=== PATIENT | female | born 1980 | race Caucasian/White ===

== ENCOUNTER 2022-08-18 08:59 | Emergency (ER) | payer OTHER, SELFPAY ==
[2022-08-18 09:07] VITALS: BP 147/93; PULSE 120; RESP 18; TEMP 38.1; O2SAT 98; BMI 25.4
--- NOTE | 2022-08-18 09:53 | XR_ITS ---
[address] [address] Patient Name: VANDANA FRANCIS MRN: [id number] date: 1980 Sex: F Assigned Patient Location: ED.MAIN Current Patient Location: ED.MAIN Accession/Order Number: [id number] Exam Date: 08/18/2022 09:53 Report Date: 08/18/2022 10:46 At the request of: GISSELLE MENDOZA Procedure: XR chest 1V XR chest 1V CLINICAL HISTORY: fever. COMPARISON: None Available. TECHNIQUE: Single AP portable upright view of the chest. FINDINGS: The lungs are clear. No pleural effusion or pneumothorax. Cardiomediastinal silhouette size is normal. No acute bony process. IMPRESSION: No acute cardiopulmonary process. Electronically authenticated by: CHARITO SHEA Date: 08/18/2022 10:46
--- NOTE | 2022-08-18 09:56 | ED_ITS ---
HPI - General Adult General Chief complaint: Fever Stated complaint: FEVER OF 103, NOT BREAKING Time Seen by Provider: 08/18/22 09:41 Source: patient Source information: patient Mode of arrival: walk-in Limitations: no limitations History of Present Illness HPI narrative: this patient presents to the emergency room with chills and fever. Symptoms started . She has [place] no upper respiratory or HEENT type symptomatology or complaints. She has no chest complaints such as cough shortness of breath sputum production or history of pulmonary disease. She did have onset of diarrhea on the same day of her fever. She says it's brown copious large amounts of diarrhea and she also has nausea but no vomiting. She does not have any other coworkers friends or family members were sick with diarrhea. She has not had any travel history. She has not had blood in her stool. She ate sushi from a rest from a grocery store on Saturday night became very ill with diarrhea on morning. She has not been on any antibiotic she is otherwise very healthy is not on any home medications. She works from home. Related Data Home Medications Medication Instructions Recorded Confirmed meloxicam 15 mg tablet mg 08/18/22 mycophenolate mofetil 500 mg tablet PO 08/18/22 Allergies Allergy/AdvReac Type Severity Reaction Status Date / Time No Known Drug Allergies Allergy Verified 08/18/22 10:07 [facility] Social History Smoking status: Former smoker Exam Narrative Exam Narrative: or a pleasant awake alert oriented does appear to be uncomfortable. Low-grade temperature and tachycardia as noted below Constitutional Vital Signs - 24 hr 08/18/22 09:07 08/18/22 10:39 08/18/22 12:00 Temperature 100.5 F H 100.7 F H 98.3 F Pulse Rate 111 H 104 H Pulse Rate [Monitor] 120 H Respiratory Rate 18 16 16 Blood Pressure 143/89 H 133/78 H Blood Pressure [Left Arm] 147/93 H Pulse Oximetry 98 98 98 Oxygen Delivery Method Room Air 08/18/22 12:48 Temperature 98.3 F Pulse Rate 96 H Pulse Rate [Monitor] Respiratory Rate 14 Blood Pressure 132/68 H Blood Pressure [Left Arm] Pulse Oximetry 99 Oxygen Delivery Method Documenting provider has reviewed patient's vital signs: yes Common normals: no apparent distress and average body habitus General appearance: cooperative and well developed Respiratory Common normals: normal respiratory effort and no retractions GI Common normals: soft to palpation Other: slight tenderness to palpation left mid and left lower quadrant with no peritoneal findings. No pain at McBurney's point. Gutierrez sign is also negative. Course Vital Signs Vital signs: Vital Signs Temperature 100.5 F H 08/18/22 09:07 Pulse Rate 120 H 08/18/22 09:07 Respiratory Rate 18 08/18/22 09:07 Blood Pressure 147/93 H 08/18/22 09:07 Pulse Oximetry 98 08/18/22 09:07 Oxygen Delivery Method Room Air 08/18/22 09:07 Temperature 98.3 F 08/18/22 14:10 Pulse Rate 86 08/18/22 14:10 Respiratory Rate 16 08/18/22 14:10 Blood Pressure 113/72 08/18/22 14:10 Pulse Oximetry 98 08/18/22 14:10 Oxygen Delivery Method Room Air 08/18/22 14:10 Medical Decision Making MDM Narrative Medical decision making narrative: patient presents with fever and diarrhea as isolated symptoms. Was suspicious of a invasive diarrheal illness but her stool profile is negative. Urine is not consistent with the obvious urinary tract infection but culture will be done. She does feel better and her temperature is come down. There is no electrolyte or kidney dysfunction today. could have a colitis not related to bacterial pathogens.we will do CT scan to rule out unusual presentation of acute diverticular disease. Lab Data Lab results reviewed: Yes I reviewed the patient's lab results Labs: Lab Results 08/18/22 08/18/22 08/18/22 Range/Units 10:00 10:50 11:00 WBC 17.4 H (4.0-11.0) 10^3/uL RBC 3.92 L (4.20-5.40) 10^6/uL Hgb 12.5 (12.0-16.0) g/dL Hct 35.8 L (36.0-48.0) % MCV 91.3 (81.0-99.0) fL MCH 31.9 (26.7-34.0) pg MCHC 34.9 (29.9-35.2) g/dL RDW 12.0 (11.0-15.0) % Plt Count 315 (150-450) 10^3/uL MPV 9.1 L (9.5-13.5) fL Seg Neuts % (Manual) 74.0 Band Neutrophils % 4.0 (0-5) % Lymphocytes % (Manual) 14.0 L (20.5-60.0) % Monocytes % (Manual) 8.0 (1.7-12.0) % Eosinophils % (Manual) 0.0 L (0.9-7.0) % Basophils % (Manual) 0.0 L (0.2-2.0) % Neutrophils # (Manual) 12.87 H (1.4-6.5) 10^3/uL Band Neutrophils # 0.7 H (0.0-0.3) 10^3/uL Lymphocytes # (Manual) 2.43 (1.20-3.80) 10^3/uL Monocytes # (Manual) 1.39 H (0.30-0.80) 10^3/uL Eosinophils # (Manual) 0.00 (0.00-0.70) 10^3/uL Basophils # (Manual) 0.00 (0.00-0.10) 10^3/uL ESR 34 H (<=20) mm/hr Sodium 136 (136-145) mmol/L Potassium 3.7 (3.5-5.1) mmol/L Chloride 101 (98-107) mmol/L Carbon Dioxide 22.6 (21.0-32.0) mmol/L Anion Gap 16.1 BUN 11.0 (7.0-18.0) mg/dL Creatinine 0.96 (0.55-1.02) mg/dL Est GFR ( Amer) >60 (>=60) Est GFR (Non-Af Amer) >60 (>=60) BUN/Creatinine Ratio 11.5 Glucose 102 (74-106) mg/dL Lactate 0.8 (0.4-2.0) mmol/L Calcium 8.7 (8.5-10.1) mg/dL Total Bilirubin 0.3 (0.2-1.0) mg/dL AST 18 (15-37) U/L ALT 39 (14-59) U/L Alkaline Phosphatase 85 (46-116) U/L Total Protein 6.8 (6.4-8.2) g/dL Albumin 2.7 L (3.4-5.0) g/dL Globulin 4.1 g/dL Albumin/Globulin Ratio 0.7 Urine Color Yellow (YELLOW) Urine Clarity Clear (CLEAR) Urine pH 5.5 (5.0-9.0) Ur Specific [place] 1.020 (1.005-1.025) Urine Protein Trace (NEG/TRACE) mg/dL Urine Glucose (UA) Negative (NEGATIVE) mg/dL Urine Ketones Trace A (NEGATIVE) mg/dL Urine Occult Blood Moderate A (NEGATIVE) Urine Nitrite Negative (NEGATIVE) Urine Bilirubin Negative (NEGATIVE) Urine Urobilinogen 0.2 (0.2-1.0) EU/dL Ur Leukocyte Esterase Trace A (NEGATIVE) Urine RBC 2-5 A (0-2) #/HPF Urine WBC 0-2 A (NONE SEEN) #/HPF Ur Squamous Epith Cells Moderate A (NONE/RARE) #/LPF Urine Crystals None seen (None Seen) #/HPF Urine Bacteria Moderate A (NONE SEEN) #/HPF Urine Casts None seen (NONE SEEN) #/LPF Urine Mucus Trace A (NONE SEEN) Ur Culture Indicated? Yes Stl C. cayetanensis PCR Not detected (NOT DETECTE) Stool Rotavirus (PCR) Not detected (NOT DETECTE) Stool Adenovirus (PCR) Not detected (NOT DETECTE) Stool Astrovirus (PCR) Not detected (NOT DETECTE) Stool Campylobacter PCR Not detected (NOT DETECTE) Stool Cryptosporidium PCR Not detected (NOT DETECTE) St Sh/Enteroin Ecoli PCR Not detected (NOT DETECTE) Stool E.coli 0157 Cult Not detected (NOT DETECTE) Stl Enterotoxigenic E PCR Not detected (NOT DETECTE) Stool EPEC (PCR) Not detected (NOT DETECTE) Stl E. histolytica PCR Not detected (NOT DETECTE) Stool Giardia Lamblia PCR Not detected (NOT DETECTE) Stl P. shigelloides PCR Not detected (NOT DETECTE) Stool Salmonella PCR Not detected (NOT DETECTE) Stool Sapovirus (PCR) Not detected (NOT DETECTE) Stl Shiga-like Tx 1 PCR Not detected (NOT DETECTE) St Y.enterocolitica PCR Not detected (NOT DETECTE) Stl Vibrio cholerae PCR Not detected (NOT DETECTE) Stl Enteroaggr Ecoli PCR Not detected (NOT DETECTE) Stl Norovirus GI/GII PCR Not detected (NOT DETECTE) C. difficile Toxin A&B Not detected (NOT DETECTE) Vibrio Culture Not detected (NOT DETECTE) Discharge Plan Discharge Chief Complaint: Fever Clinical Impression: Colitis Patient Disposition: Home, Self-Care Time of Disposition Decision: 13:55 Condition: Good Prescriptions / Home Meds: No Action meloxicam 15 mg tablet mycophenolate mofetil 500 mg tablet PO Stand Alone Forms: Portal Instructions Referrals: Deanne Briggs MD [Primary Care Provider] - 1 week Discharge Date/Time: 08/18/22 14:11
[2022-08-18] MEDS: 0.9 % SODIUM CHLORIDE 1,000 ML 999 ML IV (10:06)
[2022-08-18] MEDS: ACETAMINOPHEN 500 MG TABLET 1000 MG PO (10:06)
[2022-08-18 10:39] VITALS: BP 143/89; PULSE 111; RESP 16; TEMP 38.2; O2SAT 98
[2022-08-18 10:49] LABS: Bilirubin Urine NEGATIVE (NEGATIVE); Blood Urine MODERATE (NEGATIVE); Clarity Urine CLEAR (CLEAR); Color Urine YELLOW (YELLOW); Glucose Urine UA NEGATIVE (NEGATIVE); Ketones Urine TRACE mg/dL (NEGATIVE); Leukocyte Esterase Urine TRACE (NEGATIVE); Nitrite Urine NEGATIVE (NEGATIVE); Protein Urine TRACE mg/dL (NEG/TRACE); Urobilinogen Urine 0.2 EU/dL (0.2-1.0); pH Urine 5.5 (5.0-9.0)
[2022-08-18 10:50] LABS: Urine Microscopic Indicated YES
[2022-08-18 11:06] LABS: Adenovirus F 40/41 NOT DETECTED (NOT DETECTE); Astrovirus NOT DETECTED (NOT DETECTE); Campylobacter NOT DETECTED (NOT DETECTE); Cryptosporidium NOT DETECTED (NOT DETECTE); Cyclospora cayetanensis NOT DETECTED (NOT DETECTE); E coli 0157 NOT DETECTED (NOT DETECTE); Entamoeba histolytica NOT DETECTED (NOT DETECTE); Enteroaggregative E.coli NOT DETECTED (NOT DETECTE); Enteropathogenic E.coli NOT DETECTED (NOT DETECTE); Enterotoxigenic E. coli NOT DETECTED (NOT DETECTE); Giardia lamblia NOT DETECTED (NOT DETECTE); Norovirus GI/GII NOT DETECTED (NOT DETECTE); Plesiomonas shigelloides NOT DETECTED (NOT DETECTE); Rotavirus A NOT DETECTED (NOT DETECTE); Salmonella NOT DETECTED (NOT DETECTE); Sapovirus NOT DETECTED (NOT DETECTE); Shiga-like toxin-producing E.C NOT DETECTED (NOT DETECTE); Shigella/Enteroinvasive E.coli NOT DETECTED (NOT DETECTE); Vibrio NOT DETECTED (NOT DETECTE); Vibrio cholerae NOT DETECTED (NOT DETECTE); Yersinia enterocolitica NOT DETECTED (NOT DETECTE)
[2022-08-18 11:11] LABS: Bacteria Urine MODERATE #/HPF (NONE SEEN); Mucus Urine TRACE (NONE SEEN); Squamous Epithelial Cell Urine MODERATE #/LPF (NONE/RARE); WBC Urine 0-2 #/HPF (NONE SEEN)
[2022-08-18 11:12] LABS: Cast Seen? NONE SEEN #/LPF (NONE SEEN); Crystals Seen? None Seen #/HPF (None Seen); Urine Culture Indicated YES
[2022-08-18 11:17] LABS: Hematocrit 35.8 % (36.0-48.0); Hemoglobin 12.5 g/dL (12.0-16.0); Mean Corpuscular HGB Conc 34.9 g/dL (29.9-35.2); Mean Corpuscular Hemoglobin 31.9 pg (26.7-34.0); Mean Corpuscular Volume 91.3 fL (81.0-99.0); Mean Platelet Volume 9.1 fL (9.5-13.5); Platelet Count 315 10^3/uL (150-450); Red Blood Count 3.92 10^6/uL (4.20-5.40); White Blood Count 17.4 10^3/uL (4.0-11.0)
[2022-08-18 11:32] LABS: Lactate/Lactic Acid 0.8 mmol/L (0.4-2.0)
[2022-08-18 11:37] LABS: Band Neutrophils Absolute 0.7 10^3/uL (0.0-0.3); Lymphocytes Absolute Manual 2.43 10^3/uL (1.20-3.80); Monocytes Absolute Manual 1.39 10^3/uL (0.30-0.80); Segmented Neut Absolute Manual 12.87 10^3/uL (1.4-6.5)
[2022-08-18 11:38] LABS: Erythrocyte Sedimentation Rate 34 mm/hr (<=20)
[2022-08-18 11:39] LABS: Alanine Aminotransferase 39 U/L (14-59); Albumin Globulin Ratio 0.7; Albumin Level 2.7 g/dL (3.4-5.0); Alkaline Phosphatase 85 U/L (46-116); Anion Gap 16.1; Aspartate Amino Transferase 18 U/L (15-37); BUN Creatinine Ratio 11.5; Bilirubin Total 0.3 mg/dL (0.2-1.0); Calcium 8.7 mg/dL (8.5-10.1); Carbon Dioxide 22.6 mmol/L (21.0-32.0); Chloride 101 mmol/L (98-107); Estimated GFR (African America >60 (>=60); Estimated GFR (Non-African Ame >60 (>=60); Globulin 4.1 g/dL; Glucose 102 mg/dL (74-106); Potassium 3.7 mmol/L (3.5-5.1); Sodium 136 mmol/L (136-145); Total Protein 6.8 g/dL (6.4-8.2)
[2022-08-18 12:00] VITALS: BP 133/78; PULSE 104; RESP 16; TEMP 36.8; O2SAT 98
[2022-08-18] MEDS: 0.9 % SODIUM CHLORIDE 1,000 ML 1000 ML IV (12:05)
[2022-08-18 12:48] VITALS: BP 132/68; PULSE 96; RESP 14; TEMP 36.8; O2SAT 99
--- NOTE | 2022-08-18 13:00 | CT_ITS ---
[address] [address] Patient Name: VANDANA FRANCIS MRN: [id number] date: 1980 Sex: F Assigned Patient Location: ER Current Patient Location: Accession/Order Number: [id number] Exam Date: 08/18/2022 13:15 Report Date: 08/18/2022 13:44 At the request of: GISSELLE MENDOZA Procedure: CT abdomen pelvis w con EXAM: CT abdomen pelvis w con HISTORY: pain COMPARISON: None. TECHNIQUE: Axial CT imaging was performed through the abdomen and pelvis with intravenous contrast. Multiplanar reformats were performed. Dose reduction techniques were achieved by using automated exposure control and/or adjustment of mA and/or kV according to patient size and/or use of iterative reconstruction technique. FINDINGS: Lung bases: Lung bases are clear. No pleural effusion. Bilateral breast implant. GI upper: Small hiatal hernia. Liver: Normal size and contour. Gallbladder: No significant abnormality. No cholelithiasis. Biliary system: No intra or extrahepatic biliary ductal dilatation. Spleen: Normal size. Pancreas: Unremarkable. Adrenal glands: Normal adrenal glands. Kidneys/ureters: Normal contours. No hydronephrosis. No nephrolithiasis or ureterolithiasis. Vessels: No aneurysm. Lymph Nodes: No lymphadenopathy. Small bowel: No wall thickening or dilatation. Colon: No dilatation. There is wall thickening of the sigmoid colon, may represent acute infectious/inflammatory colitis. Correlation with patient's clinical symptom is recommended. Appendix: No findings of appendicitis. Peritoneal cavity: No free fluid or pneumoperitoneum. Lower : No significant abnormality of the uterus or adnexa. Bones: No acute bony abnormality. There is a grade 1 (0.7 cm) anterolisthesis of L4 relative to L5 vertebral body with broad-based disc bulge at this level, resulting in moderate bilateral neural foraminal narrowing. There is bilateral L4 spondylolysis. Soft tissues: No acute finding. Additional findings: None. IMPRESSION: wall thickening of the sigmoid colon, may represent acute infectious/inflammatory colitis. Correlation with patient's clinical symptom is recommended. Grade 1 (0.7 cm) anterolisthesis of L4 relative to L5 vertebral body with broad-based disc bulge at this level, resulting in moderate bilateral neural foraminal narrowing.L4 bilateral spondylolysis. Electronically authenticated by: SHEREE JUNIOR Date: 08/18/2022 13:44
[2022-08-18] MEDS: CIPROFLOXACIN HCL 500 MG TABLET PO (14:08)
[2022-08-18 14:10] VITALS: BP 113/72; PULSE 86; RESP 16; TEMP 36.8; O2SAT 98
== END 2022-08-18 14:11 | disposition home or self-care (01) ==
PROVIDERS: Emergency Provider Emergency Medicine Emergency Medical Services; PCP Family Medicine
DX: R50.9 Fever, unspecified (principal); R19.7 Diarrhea, unspecified; Z87.891 Personal history of nicotine dependence
CPT/HCPCS: 36415; 71045; 74177; 80053; 81003; 81015; 83605; 85007; 85025; 85652; 87086; 87507; 99285; Q9967

== ENCOUNTER 2023-03-04 10:45 | Emergency (ER) | payer OTHER, SELFPAY ==
[2023-03-04 10:59] VITALS: BP 138/77; PULSE 99; RESP 18; TEMP 36.7; O2SAT 95; BMI 29.5
[2023-03-04] MEDS: ONDANSETRON 4 MG RAPDIS TABLET PO (11:17)
[2023-03-04 11:26] LABS: Bilirubin Urine NEGATIVE (NEGATIVE); Blood Urine MODERATE (NEGATIVE); Color Urine LT. YELLOW (YELLOW); Glucose Urine UA NEGATIVE (NEGATIVE); Ketones Urine NEGATIVE (NEGATIVE); Leukocyte Esterase Urine LARGE (NEGATIVE); Nitrite Urine NEGATIVE (NEGATIVE); Protein Urine 30 mg/dL (NEG/TRACE); Specific Gravity Urine 1.015 (1.005-1.025); Urobilinogen Urine 0.2 EU/dL (0.2-1.0)
[2023-03-04 11:30] LABS: Clarity Urine CLOUDY (CLEAR); Urine Microscopic Indicated YES
[2023-03-04 11:31] LABS: HCG Qualitative Urine* NEGATIVE (NEGATIVE)
[2023-03-04 11:43] LABS: WBC Urine >100 #/HPF (NONE SEEN)
[2023-03-04 11:44] LABS: Bacteria Urine LARGE #/HPF (NONE SEEN); Mucus Urine NONE SEEN (NONE SEEN); Squamous Epithelial Cell Urine FEW #/LPF (NONE/RARE); Urine Culture Indicated YES
--- NOTE | 2023-03-04 11:44 | ED.FEMALEGU1 ---
HPI - Female Genitourinary General Chief complaint: Urogenital-Female Stated complaint: UTI COMPLAINTS Time Seen by Provider: 03/04/23 11:26 Source: patient Mode of arrival: walk-in Limitations: no limitations History of Present Illness HPI Narrative: patient here complaining of increased frequency of urination and dysuria. Also discomfort in the bladder area. She's not been experiencing fever shakes or chills. She has no history of recurring urinary tract infection. She is not currently on any antibiotics that she can take some [id number] medication that has not been helpful. She's not had any vomiting. She has no history of kidney stones. Otherwise she is healthy. Related Data Home Medications Medication Instructions Recorded Confirmed meloxicam 15 mg tablet mg 08/18/22 mycophenolate mofetil 500 mg tablet PO 08/18/22 Allergies Allergy/AdvReac Type Severity Reaction Status Date / Time No Known Drug Allergies Allergy Verified 08/18/22 10:07 PFSH PFSH Social History Smoking status: Never smoker Exam Narrative Exam Narrative: awake alert appears in no distress she is afebrile. She is not listing any antibiotics use at this time. Skin is warm and dry with no evidence of pallor anemia or scleral icterus. She does not have any diaphoresis or clamminess. Cognition and mentation are normal. She points to suprapubic area slight discomfort extending around her sides but did not have any back or upper flank pain. Cognition and mentation are normal. Constitutional Vital Signs, click to edit/add: Last Vital Signs Temp 98.1 F 03/04/23 10:59 Pulse 99 H 03/04/23 10:59 Resp 18 03/04/23 10:59 BP 138/77 03/04/23 10:59 Pulse Ox 95 03/04/23 10:59 O2 Del Method Room Air 03/04/23 10:59 Course Vital Signs Vital signs: Vital Signs Temperature 98.1 F 03/04/23 10:59 Pulse Rate 99 H 03/04/23 10:59 Respiratory Rate 18 03/04/23 10:59 Blood Pressure 138/77 03/04/23 10:59 Pulse Oximetry 95 03/04/23 10:59 Oxygen Delivery Method Room Air 03/04/23 10:59 Temperature 98.1 F 03/04/23 10:59 Pulse Rate 99 H 03/04/23 10:59 Respiratory Rate 18 03/04/23 10:59 Blood Pressure 138/77 03/04/23 10:59 Pulse Oximetry 95 03/04/23 10:59 Oxygen Delivery Method Room Air 03/04/23 10:59 MDM - Female Genitourinary MDM Narrative Medical decision making narrative: preliminaryresults of the urinalysis are highly suggestive of urinary tract infection which is consistent with her symptoms. We'll start her on Keflex and Pyridium. She is encouraged to take plenty of fluids. Lab Data Labs: Lab Results 03/04/23 03/04/23 Range/Units 11:04 11:18 Urine Color Lt. yellow (YELLOW) Urine Clarity Cloudy A (CLEAR) Urine pH 6.0 (5.0-9.0) Ur Specific [place] 1.015 (1.005-1.025) Urine Protein 30 A (NEG/TRACE) mg/dL Urine Glucose (UA) Negative (NEGATIVE) mg/dL Urine Ketones Negative (NEGATIVE) mg/dL Urine Occult Blood Moderate A (NEGATIVE) Urine Nitrite Negative (NEGATIVE) Urine Bilirubin Negative (NEGATIVE) Urine Urobilinogen 0.2 (0.2-1.0) EU/dL Ur Leukocyte Esterase Large A (NEGATIVE) Urine HCG, Qual Negative (NEGATIVE) Discharge Plan Discharge Chief Complaint: Urogenital-Female Clinical Impression: Urinary tract infection Patient Disposition: Home, Self-Care Time of Disposition Decision: 11:47 Prescriptions / Home Meds: No Action meloxicam 15 mg tablet mycophenolate mofetil 500 mg tablet PO Additional Instructions: Keflex/Pyridium/drink plenty of fluids Stand Alone Forms: Portal Instructions Referrals: Deanne Briggs MD [Primary Care Provider] - 1 week
== END 2023-03-04 11:57 | disposition home or self-care (01) ==
PROVIDERS: Emergency Provider Emergency Medicine Emergency Medical Services; PCP Family Medicine
DX: N39.0 Urinary tract infection, site not specified (principal)
CPT/HCPCS: 81001; 84703; 87086; 87150; 87186; 99283; Q0162

== ENCOUNTER 2023-09-11 20:53 | Emergency (ER) | payer OTHER, SELFPAY ==
[2023-09-11 21:03] VITALS: BP 146/90; PULSE 83; TEMP 36.6; O2SAT 98; BMI 26.6
--- NOTE | 2023-09-11 21:20 | ED.SKABFB1 ---
HPI - Skin/Abscess/Foreign Bdy General Chief complaint: Skin/Abscess/Foreign Body Stated complaint: Headache, Bug Bite Time Seen by Provider: 09/11/23 21:18 Source: patient Mode of arrival: walk-in Limitations: no limitations History of Present Illness HPI narrative: This 42-year-old female presents for evaluation of a rash in the right lower quadrant of her abdomen. The patient states she was at her uncles who has property outside with a wooded area and she was there on Saturday and got bit by something. She states initially she had a red spot in the area there is now a rash in. She did not see any specific bug or tick that bit her. She was wearing close at the time. Since that time she has developed an approximately 6 cm rash that is erythematous in the center with an area of clearing and an additional area of redness in a circumferential area. This is concerning for a tick bite. She denies that it itches or srinivasan. She states she woke up this morning and had stiff feet and has developed a right-sided headache and neck stiffness. She denies any fevers or chills. She denies any photophobia. She has no nausea or vomiting. She has no additional rash anywhere. She denies any chest pain or shortness of breath. She does admit that she gets occasional headaches. The headache she has at this time is on the right side of her head and radiates to the right posterior aspect of her Head and on the right side of her neck. Related Data Home Medications ?Medication ?Instructions ?Recorded ?Confirmed mycophenolate mofetil 500 mg tablet PO 08/18/22 Allergies Allergy/AdvReac Type Severity Reaction Status Date / Time No Known Drug Allergies Allergy Verified 09/11/23 21:06 Review of Systems ROS Status of ROS 10 or more systems reviewed and unremarkable except as noted in history and below [facility] Social History Smoking status: Never smoker Exam Narrative Exam Narrative: Vital signs and Nursing Notes reviewed: Patient is afebrile with a normal pulse, blood pressure is mildly elevated at 146/90, she is not hypoxic with pulse ox of 98% on room air General: Well-appearing middle-aged female, she is awake, alert, oriented, no acute distress, lying comfortably on the stretcher HEENT: Normocephalic atraumatic, mucous membranes are moist and pink, eyes are clear, normal conjunctiva, vision is grossly intact, posterior pharynx is normal in appearance. No photophobia noted Neck: Supple, no meningeal signs, patient is easily able to put her chin to her chest without nuchal rigidity or pain, no anterior posterior cervical lymphadenopathy appreciated Chest: Lungs are clear to auscultation with good air entry, there is no wheezing rhonchi or rales appreciated no accessory muscle use, patient is speaking in complete sentences-no chest wall tenderness to palpation CVS: Regular rate and rhythm S1-S2, no murmurs rubs or gallops, pulses are brisk and equal bilaterally ABD: Soft, nondistended, nontender, no rebound guarding or rigidity, bowel sounds are normal, no pulsatile masses appreciated Extremities: Moving all extremities, no lower extremity tenderness or swelling noted, negative Homans' sign, pulses are brisk and equal bilaterally Skin: There is an approximately 6 cm circular area on the right lower quadrant. The center of the rash is erythematous then there is a clearing area around this area and erythema around the cleared area. This does richy. There is no other signs of skin infection or rash. Neuro: No focal deficits Constitutional Vital Signs, click to edit/add: Last Vital Signs Temp 97.8 F 09/11/23 21:03 Pulse 78 09/11/23 23:08 Resp 18 09/11/23 23:08 BP 128/79 09/11/23 23:08 Pulse Ox 99 09/11/23 23:08 O2 Del Method Room Air 09/11/23 23:08 Course Vital Signs Vital signs: Vital Signs Temperature 97.8 F 09/11/23 21:03 Pulse Rate 83 09/11/23 21:03 Respiratory Rate 16 09/11/23 21:03 Blood Pressure 146/90 H 09/11/23 21:03 Pulse Oximetry 98 09/11/23 21:03 Oxygen Delivery Method Room Air 09/11/23 21:03 Temperature 97.8 F 09/11/23 21:03 Pulse Rate 78 09/11/23 23:08 Respiratory Rate 18 09/11/23 23:08 Blood Pressure 128/79 09/11/23 23:08 Pulse Oximetry 99 09/11/23 23:08 Oxygen Delivery Method Room Air 09/11/23 23:08 MDM - Skin/Abscess/Foreign Bdy MDM Narrative Medical decision making narrative: This 42-year-old female presents for evaluation of a nonpruritic skin rash that is approximately 6 cm on her right lower quadrant of her abdomen. She states she was walking [place] and thinks she was bit by something. She did not see what bit her. The rash started several days later and then she started developing some arthralgias, headache and neck pain. She has not had a fever. She has no photophobia. She has no chest pain or shortness of breath. An EKG was ordered to rule out a bundle branch block and was normal. An IV was placed and she was medicated with IV fluids and Toradol for her headache. On reevaluation she is feeling better from the headache. She does not have any specific nuchal rigidity but does have subjective complaints of neck pain and stiffness. I discussed the spinal tap with her several times but she does not think this is necessary. She was treated empirically with doxycycline for the possibility of the rash being erythema migrans from a tick bite. I did send a Lyme disease titer to the lab which is a send out as well as ordered a CBC with differential, ESR, CRP and comprehensive metabolic profile. All of these lab tests are normal. Lactic acid is also normal. On reevaluation she is feeling better and will be discharged home with a 14-day course of doxycycline. I did explain to her that the recommendation is 14 to 21 days however she could get the additional 7 days of doxycycline from her family physician if deemed necessary. She is in agreement with this plan. Lab Data Attestation: I reviewed the patient's lab results. Labs: Lab Results 09/11/23 Range/Units 21:40 WBC 9.0 (4.0-11.0) 10^3/uL RBC 3.98 L (4.20-5.40) 10^6/uL Hgb 12.6 (12.0-16.0) g/dL Hct 38.6 (36.0-48.0) % MCV 97.0 (81.0-99.0) fL MCH 31.7 (26.7-34.0) pg MCHC 32.6 (29.9-35.2) g/dL RDW 12.2 (11.0-15.0) % Plt Count 255 (150-450) 10^3/uL MPV 9.5 (9.5-13.5) fL Neut % (Auto) 54.6 (43.0-75.0) % Lymph % (Auto) 37.5 (20.5-60.0) % Mayes % (Auto) 6.2 (1.7-12.0) % Eos % (Auto) 0.8 L (0.9-7.0) % Baso % (Auto) 0.7 (0.2-2.0) % Neut # (Auto) 4.9 (1.4-6.5) 10^3/uL Lymph # (Auto) 3.4 (1.2-3.8) 10^3/uL [place]es # (Auto) 0.6 (0.3-0.8) 10^3/uL Eos # (Auto) 0.1 (0.0-0.7) 10^3/uL Baso # (Auto) 0.1 (0.0-0.1) 10^3/uL Abs Immat Gran (auto) 0.02 (0.00-0.03) 10^3/uL Imm/Tot Granulo (auto) 0.2 (0.0-0.5) % ESR 20 (<=20) mm/hr Sodium 134 L (136-145) mmol/L Potassium 3.7 (3.5-5.1) mmol/L Chloride 103 (98-107) mmol/L Carbon Dioxide 24.2 (21.0-32.0) mmol/L Anion Gap 10.5 BUN 16.0 (7.0-18.0) mg/dL Creatinine 0.92 (0.55-1.02) mg/dL Est GFR ( Amer) >60 (>=60) Est GFR (Non-Af Amer) >60 (>=60) BUN/Creatinine Ratio 17.4 Glucose 94 (74-106) mg/dL Lactate 0.8 (0.4-2.0) mmol/L Calcium 9.1 (8.5-10.1) mg/dL Total Bilirubin 0.3 (0.2-1.0) mg/dL AST 16 (15-37) U/L ALT 19 (14-59) U/L Alkaline Phosphatase 52 (46-116) U/L C-Reactive Protein <0.50 (<=0.50) mg/dL Total Protein 6.7 (6.4-8.2) g/dL Albumin 3.7 (3.4-5.0) g/dL Globulin 3.0 g/dL Albumin/Globulin Ratio 1.2 ECG Data Attestation: I personally reviewed and interpreted this ECG as follows: (Sinus rhythm at 60 bpm, normal axis, normal intervals, no acute ST segment elevation or T wave inversion) Discharge Plan Discharge Stand Alone Forms: Portal Instructions Chief Complaint: Skin/Abscess/Foreign Body Clinical Impression: Insect bite (nonvenomous) of abdominal wall, initial encounter, Headache Patient Disposition: Home, Self-Care Time of Disposition Decision: 23:01 Condition: Good Mode of Transportation: Private Vehicle Prescriptions / Home Meds: No Action mycophenolate mofetil 500 mg tablet PO Print Language: Turkish Instructions: Tick Bite (ED), General Headache (ED) Referrals: Deanne Briggs MD [Primary Care Provider] - 1 week Discharge Date/Time: 09/11/23 23:08
--- NOTE | 2023-09-11 21:24 | PC.NURSE ---
Pt has welt like bug bite to RLQ of abd, surrounding tissue appears pink, no drainage noted. Pt reports bug bite that occurred Saturday, denies seeing insect or remains of insect near bite.
--- NOTE | 2023-09-11 21:27 | ECG_ITS ---
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
[2023-09-11] MEDS: DOXYCYCLINE MONOHYDRATE 100 MG CAPSULE PO (21:51)
[2023-09-11] MEDS: KETOROLAC TROMETHAMINE 30 MG/ML VIAL IVP (21:51)
[2023-09-11] MEDS: 0.9 % SODIUM CHLORIDE 1,000 ML 1000 ML IV (21:51)
[2023-09-11 21:57] LABS: Basophils Absolute Auto 0.1 10^3/uL (0.0-0.1); Basophils Percent Auto 0.7 % (0.2-2.0); Eosinophils Absolute Auto 0.1 10^3/uL (0.0-0.7); Eosinophils Percent Auto 0.8 % (0.9-7.0); Hematocrit 38.6 % (36.0-48.0); Hemoglobin 12.6 g/dL (12.0-16.0); Immature Granulocytes Abs Auto 0.02 10^3/uL (0.00-0.03); Immature Granulocytes Pct Auto 0.2 % (0.0-0.5); Lymphocytes Absolute Auto 3.4 10^3/uL (1.2-3.8); Lymphocytes Percent Auto 37.5 % (20.5-60.0); Mean Corpuscular HGB Conc 32.6 g/dL (29.9-35.2); Mean Corpuscular Hemoglobin 31.7 pg (26.7-34.0); Mean Platelet Volume 9.5 fL (9.5-13.5); Monocytes Absolute Auto 0.6 10^3/uL (0.3-0.8); Monocytes Percent Auto 6.2 % (1.7-12.0); Neutrophils Absolute Auto 4.9 10^3/uL (1.4-6.5); Neutrophils Percent Auto 54.6 % (43.0-75.0); Platelet Count 255 10^3/uL (150-450); Red Blood Count 3.98 10^6/uL (4.20-5.40); Red Cell Distribution Width 12.2 % (11.0-15.0)
[2023-09-11 22:09] LABS: Erythrocyte Sedimentation Rate 20 mm/hr (<=20)
[2023-09-11 22:16] LABS: Lactate/Lactic Acid 0.8 mmol/L (0.4-2.0)
[2023-09-11 22:24] LABS: Alanine Aminotransferase 19 U/L (14-59); Albumin Globulin Ratio 1.2; Albumin Level 3.7 g/dL (3.4-5.0); Alkaline Phosphatase 52 U/L (46-116); Anion Gap 10.5; Aspartate Amino Transferase 16 U/L (15-37); BUN Creatinine Ratio 17.4; Bilirubin Total 0.3 mg/dL (0.2-1.0); C Reactive Protein <0.50 mg/dL (<=0.50); Calcium 9.1 mg/dL (8.5-10.1); Carbon Dioxide 24.2 mmol/L (21.0-32.0); Chloride 103 mmol/L (98-107); Estimated GFR (African America >60 (>=60); Estimated GFR (Non-African Ame >60 (>=60); Glucose 94 mg/dL (74-106); Potassium 3.7 mmol/L (3.5-5.1); Sodium 134 mmol/L (136-145); Total Protein 6.7 g/dL (6.4-8.2)
[2023-09-11 23:08] VITALS: BP 128/79; PULSE 78; O2SAT 99
[2023-09-13 09:10] LABS: Lyme Total Antibody CIA Negative (Negative)
== END 2023-09-11 23:08 | disposition home or self-care (01) ==
PROVIDERS: Emergency Provider Emergency Medicine; PCP Family Medicine
DX: R51.9 Headache, unspecified (principal); S30.861A Insect bite (nonvenomous) of abdominal wall, initial encounter; W57.XXXA Bitten or stung by nonvenomous insect and other nonvenomous arthropods, initial encounter
CPT/HCPCS: 36415; 80053; 83605; 85025; 85652; 86140; 86618; 93005; 96374; 99285; J1885

== ENCOUNTER 2023-10-16 20:24 | Outpatient (REF) | payer OTHER, SELFPAY ==
--- OUTSIDE RECORDS SUMMARY | 2023-10-16 20:34 | XMS_ITS | CCD ---
Author Organization [facility] Care Team Providers Care Outsole Tacker Name Role Phone Hammad Jacobs Unavailable Unavailable BRI FARNSWORTH Unavailable Unavailable PHYSICIAN, NONE Unavailable Unavailable BRI FARNSWORTH Unavailable Unavailable PHYSICIAN, NONE Unavailable Unavailable BRI FARNSWORTH Unavailable Unavailable FLAQUITO VENEGAS Unavailable Unavailable SARA MAYBERRY Unavailable Unavailable BRI FARNSWORTH Unavailable Unavailable PHYSICIAN, NONE Unavailable Unavailable Dina Brandon MD Primary Care Provider Dina Brandon MD Primary Care Provider Dina Brandon Unavailable MISC, DR ROBERTS Admitting Unavailable MISC, DR ROBERTS Consulting Unavailable MISC, DR ROBERTS Attending Unavailable ALEKSANDR, DR DINA Clement Primary Care Unavailable KARASIK ., DR LIZ Attending Unavailabl e ALEKSANDR, DR DINA Clement Primary Care Unavailable KARASIK ., DR LIZ Admitting Unavailabl e KARASIK ., DR LIZ Consulting Unavailabl e Blades, Gini Unavailable Dina Brandon Primary Care Unavailable Blades, Gini A Attending Unavailable Blades, Gini A Admitting Unavailable DINA BRANDON Primary Care Physician DINA BRANDON Primary Care Unavailable ATIYA, CAREEN Y Attending Unavailable DINA BRANDON Primary Care Unavailable ATIYA, CAREEN Y Referring Unavailable DALE ARREAGA Attending Unavailable DINA BRANDON Referring Unavailable Rufino Myers Attending Unavailable Rufino Myers Admitting Unavailable Rufino Myers Referring Unavailable Rufino Myers Attending Unavailable MD Rufino Myers Admitting Unavailable DO Bebo Bustos Admitting Unavailabl e Bebo Bustos Referring Unavailable Bebo Bustos Attending Unavailable Bebo Bustos Admitting Unavailable Bebo Bustos Referring Unavailable Bebo Bustos Attending Unavailable GINI AGUILAR Referring Unavailable Rufino Myers Attending Unavailable MD Rufino Myers Admitting Unavailable DINA BRANDON Referring Unavailable Vangie Rizvi Attending Unavailable RADHA Rizvi Admitting Unavailabl e DINA BRANDON Referring Unavailable Vangie Rizvi Attending Unavailable RADHA Rizvi Admitting Unavailabl e Allergies Allergy Classification Reported Allergen(s) Allergy Type Date of Onset Reaction(s) Facility (2 sources) patient allergy list reviewed by nurse or physicia Propensity to adverse reactions Comment:Done [facility] Other (2 sources) Allergies Reconciled Propensity to adverse reactions Unknown [facility] Other Medications Current Medications Medication Drug Class(es) Dates Sig (Normalized) Sig (Original) amoxicillin 875 mg / clavulanate 125 mg oral tablet (2 sources) Penicillin-class Antibacterial Start: 10-26-2022 take 1 tablet by mouth every twelve hours Amoxicillin-Pot Clavulanate 875-125 MG 1 tablet Orally every 12 hrs for 10 day(s) Oct, Active busPIRone hydrochloride 15 mg oral tablet (17 sources) Start: 09-19-2023 take 1 tablet by mouth twice daily Buspirone Active 1 TAB PO Twice daily September 19, 2023 12:00am FreeTextSi tablet Orally Twice a day; Note: Source Status: Taking; Provider: Aleksandr Alicea ( ) Start: 11-12-2022 take 1 tablet by nathalia th once daily busPIRone 15 mg Tab 15 mg = 1 tab(s), Oral, Daily, Refills(s) 0 Start Date: 11/12/22 Status: Ordered Start: 04-28-2022 busPIRone (BUS PAR) 10 mg tablet take 1 tablet by nathalia th every twelve hours busPIRone HCl 15 MG 1 tablet Orally Twice a day Active BuSpar Active diclofenac 35 mg oral capsule (4 sources) Nonsteroidal Anti-inflammatory Drug take 1 capsule by mouth every eight hours Diclofenac 35 MG 1 capsule as needed Orally Three times a day Active Diclofenac Submicronized (1 source) Start: take 1 capsule by mouth three times daily as needed Diclofenac Submicronized Active 1 CAP PO Three times daily September 19, 2023 12:00am FreeTextSi capsule as needed Orally Three times a day; Note: Source Status: Taking; Provider: Aleksandr Alicea ( ) etonogestrel 68 mg drug implant (14 sources) Progestin Start: 023 Nexplanon 68 mg subcutaneous implant 68 mg = 1 EA, SubCutaneous, Refills(s) 0 Start Date: 11/12/22 Status: Ordered Nexplanon 68 MG as directed Subcutaneous Active Comment on above: Inject 68 mg subcuta neously. Etonogestrel (Nexplanon) 68 mg implant (1 source) Start: 09-19-19 Etonogestrel (Nexplanon) 68 mg implant Active SUBDERMAL As Directed September 19, 2023 12:00am FreeTextSig: as directed Subcutaneous; Note: Source Status: Taking; Provider: Aleksandr Alicea ( ) Fish Oils (5 sources) Start: 11-14-19 Fish Oil Refill(s) 0, once per day Start Date: 11/13/22 Status: Ordered Magnesium (5 sources) Start: 11-14-19 magnesium magnesium, once per day Start Date: 11/13/22 Status: Ordered meloxicam 15 mg oral tablet (12 sources) Nonsteroidal Anti-inflammatory Drug Start: 09-19-19 take 1 tablet by mouth once daily Meloxicam Active 15 MG PO Daily September 19, 2023 12:00am FreeTextSi tablet Orally Once a day; Note: Source Status: Taking; Provider: Aleksandr Alicea ( ) Start: 04-08-2022 take 1 tablet by [facility] once daily meloxicam (MOBIC) 15 mg tablet Take 15 mg by mouth once daily. 0 04/08/2022 Active Comment on above: Take 15 mg by mouth once daily. Multivitamin preparation (5 sources) Start: 3 multivitamin Refill(s) 0, once per day Start Date: 11/13/22 Status: Ordered mycophenolate mofetil 250 mg oral capsule (20 sources) Start: 4 take 2 capsules by mouth twice daily Mycophenolate Mofetil Active 250 MG PO Twice daily September 19, 2023 12:00am FreeTextSi capsules Orally Twice a day; Note: Source Status: Taking; Provider: Aleksandr Alicea ( ) Start: 11-12-2022 take 2 capsules by m out twice daily CellCept 250 mg oral capsule 500 mg = 2 cap(s), Oral, BID, Refills(s) 0 Start Date: 11/12/22 Status: Ordered Start: 05-04-2022 take 2 tablets by mo ut twice daily mycophenolate Mofetil (CELLCEPT) 500 mg tablet Indications: Recurrent iritis of both eyes , Retinal vasculitis, unspecified laterality , AVIS positive , Panuveitis of both eyes , Optic atrophy , Optic disc edema Take 2 tablets by mouth twice daily. 180 tablet 5 05/04/2022 Active Start: 02-08-2021 End: 05-04-2022 take 3 tablets by mouth twice daily mycophenolate Mofetil (CELLCEPT) 500 mg tablet Indications: Recurrent iritis of both eyes , Retinal vasculitis, unspecified laterality , AVIS positive , Panuveitis of both eyes , Optic atrophy , Optic disc edema Take 3 tablets by mouth twice daily. 180 tablet 5 05/04/2022 05/04/2022 Discontinued Comment on above: Take 3 tablets by mo ut twice daily. Take 2 tablets by mo uth twice daily. ondansetron 4 mg disintegrating oral tablet (6 sources) Serotonin-3 Receptor Antagonist Start: take 1 tablet by mouth three times daily as needed Ondansetron Active 1 TAB PO Three times daily September 19, 2023 12:00am FreeTextSi tablet on the tongue and allow to dissolve Orally tid prn; Note: Source Status: Taking; Provider: Aleksandr Clement Start: 11-12-2022 take 4 mg under the tongue three times daily as needed for nausea ondansetron 4 mg, SubLingual, TID, PRN as needed for nausea/vomiting, Refills(s) 0 Start Date: 11/12/22 Status: Ordered Start: 08-24-2022 take 1 tablet by nathalia three times daily as needed Ondansetron 4 MG 1 tablet on the tongue and allow to dissolve Orally tid prn for 5 Aug, Active thyrosen (5 sources) Start: 11-13-2022 thyrosen thyrosen, 500 mg - two tabs daily Start Date: 11/13/22 Status: Ordered tiZANidine 4 mg oral tablet (10 sources) Central alpha-2 Adrenergic Agonist Start: 09-19-2023 take 1 tablet by mouth three times daily as needed Tizanidine Active 4 MG PO Three times daily September 19, 2023 12:00am FreeTextSi tablet as needed Orally Three times a day; Note: Source Status: Taking; Qty: 20 Tablet; Provider: Aleksandr Clement Start: 06-21-2022 take 4 mg by mouth t hree times daily tizanidine 4 mg, Oral, TID, Refills(s) 0 Start Date: 11/12/22 Status: Ordered traMADol hydrochloride 50 mg oral tablet (17 sources) Opioid Agonist Start: 09-19-2023 take 1 tablet by mouth three times daily as needed Tramadol Active 1 TAB PO Three times daily September 19, 2023 12:00am FreeTextSi tablet as needed Orally tid prn; Note: Source Status: Taking; Provider: Aleksandr Clement Start: 04-20-2022 take 50 mg by mouth three times daily as needed for pain tramadol 50 mg, Oral, TID, PRN as needed for pain, Refills(s) 0 Start Date: 11/12/22 Status: Ordered take 1 tablet by nathalia th every twenty-four hours traMADol HCl 50 MG 1 tablet as needed Orally Once a day Active Comment on above: TAKE 1 TABLET BY NATHALIA TH THREE TIMES A DAY NEEDED FOR 14 DAYS Turmeric extract (5 sources) Start: 11-13-2022 Turmeric Refil l(s) 0, once per day Start Date: 11/13/22 Status: Ordered Vitamin E (5 sources) Start: 11-13-2022 vitamin E once per day, Refills(s) 0 Start Date: 11/13/22 Status: Ordered Completed/Discontinued Medications Medication Drug Class(es) Dates Sig (Normalized) Sig (Original) amoxicillin 500 mg oral capsule (8 sources) Penicillin-class Antibacterial Start: 05-09-2022 take 1 capsule by mouth every eight hours Amoxicillin 500 MG 1 capsule Orally every 8 hrs for 5 days May, Not-Taking Ascorbic Acid (6 sources) Vitamin C ascorbic acid (VITAMIN C ORAL) Take by mouth once daily. 0 Active Comment on above: Take by mouth once d aily. benoxinate hydrochloride 4 mg/ml / fluorescein sodium 2.5 mg/ml ophthalmic solution (3 sources) Diagnostic Dye Start: 11-16-2022 End: 11-16-2022 fluorescein-benox inate 0.25-0.4 % 1 Drop (FLURESS) Start: 05-03-2022 End: 05-03-2022 fluorescein-benoxinate 0.25- 0.4 % 1 Drop (FLURESS) Biotin (6 sources) BIOTIN ORAL Take by mouth once daily. 0 Active Comment on above: Take by mouth once d aily. cholecalciferol, vitamin D3, (VITAMIN D3 ORAL) (6 sources) cholecalciferol, vitamin D3, (VITAMIN D3 ORAL) Take by mouth once daily. 0 Active Comment on above: Take by mouth once d aily. cycloSPORINE 0.5 mg/ml ophthalmic suspension (6 sources) Calcineurin Inhibitor Immunosuppressant Start: 2019 RESTASIS 0.05 % ophthalmic emulsion docosahexaenoic acid 120 mg / eicosapentaenoic acid 180 mg oral capsule (6 sources) Start: 2020 take 1 capsule by mouth once daily Docosahexanoic Acid-Eicosapent (FISH OIL) 120-180 mg capsule Take 1 g by mouth once daily. 0 05/10/2020 Active Comment on above: Take 1 g by mouth on ce daily. ketorolac tromethamine 5 mg/ml ophthalmic solution (5 sources) Nonsteroidal Anti-inflammatory Drug, Cyclooxygenase Inhibitor Start: 2020 End: 2022 take 1 drop(s) into the eye(s) four times daily keTORolac (ACULAR) 0.5 % ophthalmic solution Use 1 Drop in the left eye four times daily. 10 mL 1 11/02/2020 05/04/2022 Discontinued Comment on above: Use 1 Drop in the le ft eye four times daily. Lactobacillus acidophilus (6 sources) Lactobacillus acidophilus (PROBIOTIC ORAL) Take by mouth once daily. 0 Active Comment on above: Take by mouth once d aily. multivit with calcium,iron,min (WOMEN'S DAILY MULTIVITAMIN ORAL) (6 sources) multivit with calcium,iron,min (WOMEN'S DAILY MULTIVITAMIN ORAL) Take by mouth once daily. 0 Active Comment on above: Take by mouth once d aily. oxyCODONE hydrochloride 5 mg oral tablet (5 sources) Opioid Agonist Start: 2020 End: 2022 take 1 tablet by mouth every eight hours as needed for pain oxyCODONE IR (ROXICODONE) 5 mg immediate release tablet Indications: Acute post-operative pain Take 1 tablet by mouth every 8 hours as needed for pain. 5 tablet 0 10/31/2020 05/04/2022 Discontinued Comment on above: Take 1 tablet by nathalia every 8 hours as needed for pain. phenylephrine hydrochloride 25 mg/ml ophthalmic solution (2 sources) alpha-1 Adrenergic Agonist Start: 2022 End: 2022 PHENYLephrine 2.5 % 1 Drop (AK-DILATE, SILAS-SYNEPHRINE) Start: 05-03-2022 End: 05-03-2022 PHENYLephrine 2.5 % 1 Drop ( AK-DILATE, SILAS-SYNEPHRINE) prednisoLONE acetate 10 mg/ml ophthalmic suspension (5 sources) Corticosteroid Start: 11-02-2020 End: 05-04-2022 prednisoLONE acetate (PRED FORTE, ECONOPRED PLUS) 1 % ophthalmic suspension Use 1 Drop in the left eye twice daily. 10 mL 2 11/02/2020 05/04/2022 Discontinued Comment on above: Use 1 Drop in the le ft eye twice daily. Promethazine (1 source) Phenothiazine Start: 01-30-2010 Phenergan DM 15 mg-6.25 mg/5 mL Syrup 5 mL, Oral, QID PRN cough, 120 mL, Refill(s) 0, 0, Print Requisition Start Date: 01/30/10 Status: Ordered proparacaine hydrochloride 5 mg/ml ophthalmic solution (1 source) Local Anesthetic Start: 05-03-2022 End: 05-03-2022 proparacaine 0.5 % 1 Drop (ALCAINE) sulfamethoxazole 800 mg / trimethoprim 160 mg oral tablet (6 sources) Dihydrofolate Reductase Inhibitor Antibacterial, Sulfonamide Antimicrobial Start: 02-07-2021 End: 05-04-2022 take 1 tablet by mouth once sulfamethoxazole-trim ethoprim (BACTRIM DS) 800-160 mg per tablet Indications: High risk medication use , Immunosuppression due to drug therapy (HCC) , On prednisone therapy , Need for pneumocystis prophylaxis TAKE BY MOUTH 1 TABLET ON SATURDAY, SATURDAY AND SATURDAY 12 tablet 1 02/07/2021 05/04/2022 Discontinued take 1 tablet by mouth every twe lve hours Bactrim DS 800-160 MG 1 tablet Orally Twice a day for 5 days Active Comment on above: TAKE BY MOUTH 1 TABL ET ON SATURDAY, SATURDAY AND SATURDAY tropicamide 10 mg/ml ophthalmic solution (2 sources) Anticholinergic Start: 11-16-2022 End: 11-16-2022 tropicamide 1 % 1 Drop (MYDRIACYL) Start: 05-03-2022 End: 05-03-2022 tropicamide 1 % 1 Drop (MYDR IACYL) vitamin b complex capsule (6 sources) take 1 capsule by mouth once daily vitamin b complex capsule Take 1 capsule by mouth once daily. 0 Active Comment on above: Take 1 capsule by [facility] once daily. ZyrTEC D 5 mg-120 mg Tab-ER (1 source) Start: 01-30-2010 End: 02-06-2010 ZyrTEC D 5 mg-120 mg Tab-ER 1 tab(s), Oral, BID, 14 tab(s), Refill(s) 0, 0, Print Requisition Start Date: 01/30/10 Stop Date: 02/06/10 Status: Ordered Problems Active Problems Problem Classification Problem Date Documented Date Episodic/Chronic Acute and chronic tonsillitis (2 sources) Acute tonsillitis; Translations: [Acute tonsillitis, unspecified] Episodic Cancer of cervix (10 sources) Cervical intraepithelial neoplasia grade III with severe dysplasia; Translations: [Carcinoma in situ of cervix, unspecified] Onset: 02-11-2019 02-11-2019 Episodic Coagulation and hemorrhagic disorders (6 sources) Factor V Leiden mutation; Translations: [Activated protein C resistance] Onset: 05-06-2020 05-06-2020 Chronic Contraceptive and procreative management (4 sources) Surveillance of intrauterine device contraception; Translations: [Encounter for routine checking of intrauterine contraceptive device] Resolved: 10-23-2021 Episodic Essential hypertension (6 sources) Essential hypertension; Translations: [Essential (primary) hypertension] Chronic Headache; including migraine (2 sources) Headache; Translations: [Headache, unspecified] Episodic Immunizations and screening for infectious disease (5 sources) Anti-nuclear factor positive; Translations: [Other specified abnormal immunological findings in serum] Onset: 05-21-2022 Episodic Inflammation; infection of eye (except that caused by tuberculosis or sexually transmitteddisease) (2 sources) Bilateral panuveitis of eyes; Translations: [Panuveitis, bilateral] Chronic Inflammation; infection of eye (except that caused by tuberculosis or sexually transmitteddisease) (4 sources) Iritis; Translations: [Recurrent acute iridocyclitis, bilateral] Episodic Malaise and fatigue (1 source) Fatigue; Translations: [Other fatigue] Episodic Mood disorders (6 sources) Depression; Translations: [Depressive disorder] Chronic Nausea and vomiting (1 source) Nausea with vomiting, unspecified Episodic Nonmalignant breast conditions (1 source) Pain of breast; Translations: [Mastodynia] Episodic Nutritional deficiencies (2 sources) Vitamin D deficiency; Translations: [Vitamin D deficiency, unspecified] Chronic Osteoarthritis (2 sources) Osteoarthritis; Translations: [Unspecified osteoarthritis, unspecified site] Chronic Other acquired deformities (8 sources) Acquired spondylolisthesis; Translations: [Spondylolisthesis, lumbar region] Episodic Other acquired deformities (1 source) Spondylolisthesis, lumbar region Episodic Other aftercare (1 source) Immunosuppression; Translations: [Immunosuppression due to drug therapy (HCC)] Episodic Other circulatory disease (2 sources) Elevated blood-pressure reading without diagnosis of hypertension; Translations: [Elevated blood-pressure reading, without diagnosis of hypertension] Episodic Other connective tissue disease (1 source) Pain of bilateral hands; Translations: [Pain in right hand] Episodic Other eye disorders (2 sources) Optic atrophy; 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] Chronic Other eye disorders (4 sources) Optic disc edema; Translations: [Unspecified papilledema] Chronic Other female genital disorders (2 sources) Postcoital bleeding; Translations: [Postcoital and contact bleeding] Chronic Other female genital disorders (2 sources) Disorder of female genital system; Translations: [Personal history of other diseases of the female genital tract] Episodic Other injuries and conditions due to external causes (2 sources) History of fall; Translations: [History of falling] Episodic Other nervous system disorders (11 sources) Complex regional pain syndrome, type I; Translations: [Complex regional pain syndrome I, unspecified] 01-30-2010 Chronic Other non-traumatic joint disorders (1 source) Joint stiffness; Translations: [Stiffness of unspecified joint, not elsewhere classified] Episodic Other non-traumatic joint disorders (1 source) Multiple joint pain; Translations: [Pain in unspecified joint] Episodic Other non-traumatic joint disorders (1 source) Pain in right knee Episodic Other nutritional; endocrine; and metabolic disorders (4 sources) Body mass index 25-29 - overweight; Translations: [Body mass index (BMI) 25.0-25.9, adult] Episodic Other nutritional; endocrine; and metabolic disorders (3 sources) Abnormal weight gain; Translations: [Abnormal weight gain] Resolved: 10-25-2021 09-20-2023 Episodic Other and delivery including normal (8 sources) Primigravida; Translations: [Encounter for supervision of normal first , first trimester] Resolved: 12-04-2018 Episodic Other screening for suspected conditions (not mental disorders or infectious disease) (8 sources) Encounter for screening for malignant neoplasm of cervix; Translations: [Urine test negative] Onset: 05-16-2022 Episodic Other skin disorders (2 sources) Generalized hyperhidrosis; Translations: [Generalized hyperhidrosis] Episodic Other upper respiratory infections (6 sources) Acute maxillary sinusitis, unspecified; Translations: [Acute pharyngitis] Onset: 12-01-2014 Episodic Residual codes; unclassified (3 sources) Family history of breast cancer; Translations: [Family history of malignant neoplasm of breast] Episodic Residual codes; unclassified (1 source) H/O: artificial organ/tissue; Translations: [Other specified postprocedural states] Episodic Residual codes; unclassified (2 sources) Sleep disorder; Translations: [Sleep disorder, unspecified] Episodic Residual codes; unclassified (2 sources) Postprocedural state finding; Translations: [Other specified postprocedural states] Episodic Residual codes; unclassified (2 sources) Symptom: generalized; Translations: [Other general symptoms and signs] Episodic Residual codes; unclassified (2 sources) Tobacco user; Translations: [Tobacco use] Episodic Residual codes; unclassified (2 sources) Other specified health status; Translations: [Health status] Episodic Residual codes; unclassified (2 sources) Complication occurring during ; Translations: [Personal history of other complications of , childbirth and the puerperium] Episodic Residual codes; unclassified (2 sources) Genetic disorder carrier; Translations: [Family history of carrier of genetic disease] Episodic Retinal detachments; defects; vascular occlusion; and retinopathy (4 sources) Retinal vasculitis; 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, unspecified eye] Onset: 11-16-2022 Chronic Spondylosis; intervertebral disc disorders; other back problems (6 sources) Spinal stenosis of lumbar region; Translations: [Spinal stenosis, lumbar region without neurogenic claudication] Episodic Unclassified (1 source) Unknown / UNK(Unknown) Onset: 01-19-2017 Unclassified (1 source) Spondylolisthesis, lumbar region; Translations: [Spondylolisthesis, lumbar region] Onset: 05-16-2022 Urinary tract infections (3 sources) Urinary tract infectious disease; Translations: [Urinary tract infection, site not specified] 09-19-2023 Episodic Past or Other Problems Problem Classification Problem Date Documented Da te Episodic/Chronic Administrative/social admission (4 sources) Other specified counseling; Translations: [OTHER SPECIFIED COUNSELING] Onset: 08-30-2021 Episodic Genitourinary symptoms and ill-defined conditions (2 sources) Dysuria; Translations: [Dysuria] Onset: 05-20-2013 Episodic Other complications of (2 sources) High risk ; Translations: [Supervision of high risk , unspecified, second trimester] Resolved: 12-04-2018 Episodic Other complications of (2 sources) Single stillbirth; Translations: [Single stillbirth] Resolved: 12-04-2018 Episodic Other complications of (2 sources) A/N care: poor obstetric history; Translations: [Supervision of with other poor reproductive or obstetric history, first trimester] Resolved: 12-04-2018 Episodic Other female genital disorders (2 sources) Dyspareunia; Translations: [Unspecified dyspareunia] Resolved: 12-21-2020 Chronic Other gastrointestinal disorders (2 sources) Diarrhea; Translations: [Diarrhea, unspecified] Onset: 05-20-2013 Episodic Other non-traumatic joint disorders (6 sources) Shoulder stiff; Translations: [Stiffness of unspecified shoulder, not elsewhere classified] Onset: 06-02-2020 06-02-2020 Episodic Other non-traumatic joint disorders (2 sources) Shoulder joint pain; Translations: [Pain in right shoulder] Onset: 03-21-2018 Episodic Other nutritional; endocrine; and metabolic disorders (2 sources) Overweight; Translations: [Overweight] Resolved: 10-23-2021 Episodic Residual codes; unclassified (7 sources) BRCA2 gene mutation positive; Translations: [Genetic susceptibility to malignant neoplasm of breast] Onset: 02-11-2019 Episodic Residual codes; unclassified (6 sources) Breast cancer genetic marker of susceptibility positive; Translations: [Genetic susceptibility to malignant neoplasm of breast] Onset: 05-10-2020 05-10-2020 Episodic Unclassified (1 source) BILAT EAR PAIN, COUGH, SORE THROAT, SWOLLEN GLANDS Onset: 01-19-2017 Results Test Name Value Interpretation Reference Range Facility Basophils Auto (Bld) [#/Vol] on 09-11-2023 Basophils (Bld) [#/Vol] 0.1 10 3/uL 0.0-0.1 [facility] Basophils/100 WBC Auto (Bld) on 09-11-2023 Basophils/100 WBC (Bld) 0.7 % 0.2-2.0 [facility] Borrelia burgdorferi IgG+IgM Ab [Presence] in Serum by Immunoassayon 09-11-2023 B. burgdorferi IgG+IgM IA Ql (S) Negative Negative [facility] Comment on above: Lyme antibodies not detected. Reflex testing is notindicated.No laboratory evidence of infection with B. burgdorferi(Lyme disease). Negative results may occur in patientsrecently infected (less than or equal to 14 days) with B.burgdorferi. If recent infection is suspected, repeattesting on a new sample collected in 7 to 14 days isrecommended.Performed at: [facility] [id number] Director: Michael Gant PhD, Phone: [phone] Eosinophils/100 WBC Auto (Bl d)on 09-11-2023 Eosinophils/100 WBC (Bld) 0.8 % Low 0.9-7.0 [facility] Erythrocyte distribution wid th Auto (RBC) [Ratio]on 09-11-2023 Erythrocyte distribution width (RBC) [Ratio] 12.2 % 11.0-15.0 [facility] Estimated glomerular filtrat ion rate (GFR) non- Americanon 09-11-2023 GFR/1.73 sq M.predicted among non-blacks MDRD (S/P/Bld) [Vol rate/Area] mL/min/{1.73_m2} >=60 [facility] Globulin Calc (S) [Mass/Vol] on 09-11-2023 Globulin (S) [Mass/Vol] 3.0 g/dL [facility] Hematocrit Auto (Bld) [Volum e fraction]on 09-11-2023 Hematocrit (Bld) [Volume fraction] 38.6 % 36.0-48.0 [facility] [facility] Hem[facility] [Mass/volume] in Bloodon 09-11-2023 Hemoglobin (Bld) [Mass/Vol] 12.6 g/dL 12.0-16.0 [facility] Laboratory - Chemistry and C hemistry - challengeon 09-11-2023 Albumin [Mass/Vol] 3.7 g/dL 3.4-5.0 [facility] ALP [Catalytic activity/Vol] 52 U/L 46-116 [facility] ALT [Catalytic activity/Vol] 19 U/L 14-59 [facility] AST [Catalytic activity/Vol] 16 U/L 15-37 [facility] Bilirubin [Mass/Vol] 0.3 mg/dL 0.2-1.0 [facility] Calcium [Mass/Vol] 9.1 mg/dL 8.5-10.1 [facility] Chloride [Moles/Vol] 103 mmol/L 98-107 [facility] CO2 [Moles/Vol] 24.2 mmol/L 21.0-32.0 [facility] Creatinine [Mass/Vol] 0.92 mg/dL 0.55-1.02 [facility] GFR/1.73 sq M.predicted MDRD (S/P/Bld) [Vol rate/Area] mL/min/{1.73_m2} >=60 [facility] Glucose [Mass/Vol] 94 mg/dL 74-106 [facility] Lactate [Moles/Vol] 0.8 mmol/L 0.4-2.0 [facility] Potassium [Moles/Vol] 3.7 mmol/L 3.5-5.1 [facility] Protein [Mass/Vol] 6.7 g/dL 6.4-8.2 [facility] Sodium [Moles/Vol] 134 mmol/L Low 136-145 [facility] Urea nitrogen [Mass/Vol] 16.0 mg/dL 7.0-18.0 [facility] Urea nitrogen/Creatinine [Mass ratio] 17.4 mg/mg [facility] Laboratory - Hematology and Cell countson 09-11-2023 ESR (Bld) [Velocity] 20 mm/h <=20 [facility] Immature granulocytes/100 WBC (Bld) 0.2 % 0.0-0.5 [facility] Leukocytes [#/volume] correc anaid for nucleated erythrocytes in Blood by Automated counon 09-11-2023 WBC corrected for nucl RBC Auto (Bld) [#/Vol] 9.0 10 3/uL 4.0-11.0 [facility] Lymphocytes Auto (Bld) [#/Vo l]on 09-11-2023 Lymphocytes (Bld) [#/Vol] 3.4 10 3/uL 1.2-3.8 [facility] Lymphocytes/100 WBC Auto (Bl d)on 09-11-2023 Lymphocytes/100 WBC (Bld) 37.5 % 20.5-60.0 [facility] MCH Auto (RBC) [Entitic mass ]on 09-11-2023 MCH (RBC) [Entitic mass] 31.7 pg 26.7-34.0 [facility] MCHC Auto (RBC) [Mass/Vol]on 09-11-2023 MCHC (RBC) [Mass/Vol] 32.6 g/dL 29.9-35.2 [facility] MCV Auto (RBC) [Entitic vol] on 09-11-2023 MCV (RBC) [Entitic vol] 97.0 fL 81.0-99.0 [facility] Monocytes Auto (Bld) [#/Vol] on 09-11-2023 Monocytes (Bld) [#/Vol] 0.6 10 3/uL 0.3-0.8 [facility] Monocytes/100 WBC Auto (Bld) on 09-11-2023 Monocytes/100 WBC (Bld) 6.2 % 1.7-12.0 [facility] Neutrophils Auto (Bld) [#/Vo l]on 09-11-2023 Neutrophils (Bld) [#/Vol] 4.9 10 3/uL 1.4-6.5 [facility] Neutrophils/100 WBC Auto (Bl d)on 09-11-2023 Neutrophils/100 WBC (Bld) 54.6 % 43.0-75.0 [facility] No Panel Informationon 09-10 C-Reactive Protein, Quantitative <0.50 mg/dL <=0.50 [facility] Eosinophils # (Auto) 0.1 10 3/uL 0.0-0.7 [facility] Immature Granulocyte # (Auto) 0.02 10 3/uL 0.00-0.03 [facility] Platelet mean volume Auto (B ld) [Entitic vol]on 09-11-2023 Platelet mean volume (Bld) [Entitic vol] 9.5 fL 9.5-13.5 [facility] Platelets Auto (Bld) [#/Vol] on 09-11-2023 Platelets (Bld) [#/Vol] 255 10 3/uL 150-450 [facility] RBC Auto (Bld) [#/Vol]on RBC (Bld) [#/Vol] 3.98 10 6/uL Low 4.20-5.40 [facility] Serum or plasma albumin/glob ulin mass ratioon 09-11-2023 Albumin/Globulin [Mass ratio] 1.2 {ratio} [facility] Serum or plasma anion gap de terminationon 09-11-2023 Anion gap [Moles/Vol] 10.5 mmol/L [facility] Consent for Treatmenton 07-03 Consent for Treatment [id number]#1.00TIFF Normal [facility] Consultation Noteon 07-26-19 Consultation Note Patient: VANDANA HERRERA Age: 42 years Sex: Female : 1980 Associated Diagnoses: None Author: Vangie Rizvi PA-C Subjective Chief complaint 07/26/2023 14:20 EDT back pain . Patient is a 42-year-old female. She presents today for follow-up after undergoing bilateral L3-5 medial branch RFA. This was covering the L4-S1 facet joints. It was done on 05/08/2023 and has given 80% relief. She states that things are going well. She is doing well. She is comfortable. She is happy. Previously, physical therapy did not help. Anti-inflammatory medications do not give any long-term relief. She is very pleased after the ablation with how she is feeling and doing. She is back to normal activities. Health Status Allergies: Allergic Reactions (Selected) No Known Allergies, Allergies (1) Active Severity Reaction No Known Allergies None Documented Current medications: (Selected) Documented Medications Documented CellCept 250 mg oral capsule: 500 mg = 2 cap(s), Oral, BID, Refills(s) 0 Fish Oil: Refill(s) 0, once per day Nexplanon 68 mg subcutaneous implant: 68 mg = 1 EA, SubCutaneous, Refills(s) 0 Turmeric: Refill(s) 0, once per day busPIRone 15 mg Tab: 15 mg = 1 tab(s), Oral, Daily, Refills(s) 0 magnesium: magnesium, once per day multivitamin: Refill(s) 0, once per day thyrosen: thyrosen, 500 mg - two tabs daily tizanidine: 4 mg, Oral, TID, Refills(s) 0 tramadol: 50 mg, Oral, TID, PRN as needed for pain, Refills(s) 0 vitamin E: once per day, Refills(s) 0 Problem list: All Problems RSD - Reflex sympathetic dystrophy / SNOMED CT 347104276 / Confirmed Tonsillectomy / SNOMED CT 958618624 / Confirmed Objective Vital Signs 07/26/2023 14:20 EDT Peripheral Pulse Rate 62 bpm Respiratory Rate 14 br/min Systolic Blood Pressure 126 mmHg Diastolic Blood Pressure 88 mmHg Mean Arterial Pressure, Cuff 101 mmHg General: Alert and oriented, No acute distress. Eye: Normal conjunctiva. HENT: Normocephalic, Normal hearing. Cardiovascular: No edema. Musculoskeletal Normal range of motion. Normal strength. 5/5 lower extremity strength Integumentary: Warm, Dry, Veyo. Neurologic: Alert, Oriented. Psychiatric: Cooperative, Appropriate mood & affect. 14 point review of systems was negative unless otherwise noted. Impression and Plan Patient is a 42-year-old female with a past medical history seen for lumbar spondylosis and chronic lower back pain following up after undergoing bilateral L3-5 medial branch RFA. This was covering the L4-S1 facet joints. It was done on 05/08/2023 and at this time has given her 80% relief. She is feeling well. She is doing well. She is comfortable. She is happy. She feels that her pain is overall very well-controlled. At this time, she is going to follow-up in 6 months because she would rather stay on top of this. Does not want to end up and how much pain she was in before. She will call us in the interim should she require anything from our services. PATRICK score: 12%. [facility] Comment on above: Result Comment: Elec tronically Signed By: Blekys GARCIA, Vangie\.br\Date and Time Signed: 07/26/23 14:35 EDT Office/Clinic Note-Physician on 07-26-2023 Office/Clinic Note-Physician [id number]#1.00TIFF [facility] Patient Correspondenceon Patient Correspondence [id number]#1.00TIFF [facility] Patient Correspondence [id number]#1.00TIFF [facility] Patient History Officeon Patient History Office [id number]#1.00TIFF [facility] CNCOon 05-17-2023 CNCO Letter Text Normal [facility] Consent for Procedure/Surger yon 05-08-2023 Consent for Procedure/Surgery [id number]#1.00TIFF [facility] Consent for Treatmenton Consent for Treatment [id number]#1.00TIFF [facility] Discharge Instructionson Discharge Instructions [id number]#1.00TIFF [facility] IntraOperative Documentson 0 05-08-2023 IntraOperative Documents [id number]#1.00TIFF [facility] Main OR Intraoperative Recor don 05-08-2023 Main OR Intraoperative Record IntraOp Document Type FTPM Summary Primary Physician: Bebo Bustos DO Finalized Date/Time: 05/08/23 10:00:27 Pt. Name: JAVIERVANDANA/Sex: 1980 Female Med Rec #: [id number] Physician: Bebo Bustos DO Financial #: [id number] Pt. Type: P Room/Bed: / Admit/Disch: 05/08/23 08:38:27 - Institution: Case Times FTPM Entry 1 Patient Times In Room 05/08/23 09:27:00 Out Room 05/08/23 10:00:00 Procedure Times Start 05/08/23 09:30:00 Stop 05/08/23 09:59:00 Anesthesia Times Last Modified By: Kriss Sam RN 05/08/23 10:00:17 Case Attendance FTPM Entry 1 Entry 2 Entry 3 Case Attendee Bebo Bustos DO, RN, Kriss Chen RN, Lakesha Campos Role Performed Surgeon - Primary Air Tester - Primary Scrub - Primary Time In 05/08/23 09:27:00 05/08/23 09:27:00 05/08/23 09:27:00 Time Out 05/08/23 10:00:00 05/08/23 10:00:00 05/08/23 10:00:00 Procedure LUMBAR RADIO FREQUENCY LUMBAR RADIO FREQUENCY LUMBAR RADIO FREQUENCY ABLATION(Bilateral) ABLATION(Bilateral) ABLATION(Bilateral) Comments Last Modified By: Flaco VO, Kriss Sam RN, Kriss De León RN 05/08/23 10:00:18 05/08/23 10:00:18 05/08/23 10:00:18 Entry 4 Case Attendee Elver Luz Role Performed Pizza Chef Time In 05/08/23 09:27:00 Time Out 05/08/23 10:00:00 Procedure LUMBAR RADIO FREQUENCY ABLATION(Bilateral) Comments Last Modified By: Kriss Sam RN 05/08/23 10:00:18 Perioperative Protocols FTPM Pre-Care Text: Implements protective measures prior to operative or invasive procedure, confirms identity before the operative or invasive procedure, verifies operative procedure, surgical site, and laterality Entry 1 Procedure(s) LUMBAR RADIO FREQUENCY Patient Identity Birthday, ID Band ABLATION(Bilateral) Verified (select at Check, Patient least 2): Participation Consents / H and P HandP, Surgery/Procedure Operative Site Present Verified Consent Marking Verified Surgical Site Yes Laterality Verified Yes Verified Procedure Verified Yes Correct Patient Yes Position Verified Availability Equipment, Medication, Prep Dry Yes Verified (If X-ray Applicable) PreOp Antibiotic No Time Out Kriss Sam RN, Roderick RN, Tristan Munoz DO, Bradford A., Elver Luz Time Out Complete 05/08/23 09:27:00 Outcomes Met? Yes Last Modified By: Kriss Sam RN 05/08/23 09:27:37 Post-Care Text: The patient is free from signs and symptoms of injury caused by extraneous objects Allergy Information FTPM Pre-Care Text: Verifies allergies Entry 1 Allergies Reviewed? Yes Allergies Reviewed Self/Patient With Outcomes Met? Yes Last Modified By: Kriss Sam RN 05/08/23 09:26:44 Post-Care Text: The patient received appropriate medication(s) safely administered during the perioperative period Surgical Procedures FTPM Entry 1 Procedure Description Procedure LUMBAR RADIO FREQUENCY Modifiers Bilateral ABLATION Surgeon Description L4/5 +L5/S1 RFA Primary Procedure Yes Primary Surgeon Bebo Bustos DO Start 05/08/23 09:30:00 Stop 05/08/23 09:59:00 Anesthesia Type None Surgical Service Pain Management Wound Class 1 - Clean Last Modified By: Kriss Sam RN 05/08/23 10:00:19 General Case Data FTPM Pre-Care Text: Classifies surgical wound, implements aseptic technique, initiates traffic control Entry 1 Case Information OR Pain Proc Room Case Level Level 2 Wound Class 1 - Clean Specialty Pain Management Preop Diagnosis M47.816 Postop Same As Preop Yes Postop Diagnosis M47.816 Outcomes Met? Yes Last Modified By: Kriss Sam RN 05/08/23 09:27:49 Post-Care Text: The patient is free from signs and symptoms of infection Skin Assessment (Pre Procedure) FTPM Pre-Care Text: Implements protective measures to prevent skin/ tissue injury due to thermal or mechanical sources Evaluates for signs and symptoms of physical injury to skin and tissue Entry 1 Skin Integrity Intact, Veyo, Warm, and Skin Abnormality No Dry Outcomes Met? Yes Last Modified By: Kriss Sam RN 05/08/23 09:26:51 Post-Care Text: The patient is free from signs and symptoms of injury caused by extraneous objects Patient Positioning FTPM Pre-Care Text: Identifies physical alterations that require additional precautions for procedure-specific positioning, verifies presence of prosthetics or corrective devices, positions the patient, evaluates the patient for signs and symptoms of injury as a result of positioning Entry 1 Procedure LUMBAR RADIO FREQUENCY Body Position Prone ABLATION(Bilateral) Feet Uncrossed? Yes Left Arm Position Resting at Side Right Arm Position Resting at Side Left Leg Position Extended Right Leg Position Extended Positioning Device Pillow Under Head Large, Safety Strap, Pillow Large Under Knees Press Points Checke (more content not included)... [facility] Main OR Preoperative Recordo n 05-08-2023 Main OR Preoperative Record Holding Area Document Type FTPM Summary Primary Physician: Bebo Bustos DO Finalized Date/Time: 05/08/23 08:50:45 Pt. Name: VANDANA HERRERA/Sex: 1980 Female Med Rec #: [id number] Physician: Bebo Bustos DO Financial #: [id number] Pt. Type: P Room/Bed: / Admit/Disch: 05/08/23 08:38:27 - Institution: Case Times Holding FTPM Pre-Care Text: Verifies consent for planned procedure, identifies individual values and wishes concerning care, includes family members in perioperative teaching Secures patient's records' belongings, and valuables, maintains patient's dignity and privacy, and maintains patient confidentiality Entry 1 In Holding 05/08/23 08:49:00 Outcomes Met? Yes Last Modified By: Di Brown RN 05/08/23 08:49:32 Post-Care Text: The patient participates in decisions affecting his or her perioperative plan of care The patient's right to privacy is maintained Surgery Checklist FTPM Entry 1 Patient Birthday, ID Band Procedure History and Physical, Identification: Check, Patient Verification: Surgical Consent, With Participation Patient NPO after Midnight: No Date/Time: 05/08/23 08:49:00 Results Reviewed protein shake, Personal Items: Jewelry Comments: strawberries Personal Items watch Complaints of Pain: Yes Comment: Pain Comment: 10/11 low back Operative Site Yes Marking: Marked By: Dr bustos Location: bilateral L4/5, L5/S1 RFA Availability Equipment, X-Ray Verified: Does Patient Smoke No Patient states Yes Comment - Adult friend-shane postop adult Supervision supervision available Case Cancelled in No Holding Area see comments below for reason Last Modified By: Di Brown RN 05/08/23 08:50:40 Finalized By: Di Brown RN Document Signatures Signed By: Di Brown RN 05/08/23 08:50 [facility] Patient Correspondenceon Patient Correspondence [id number]#1.00TIFF [facility] Insurance Correspondence Off iceon 04-04-2023 Insurance Correspondence Office [id number]#2.00TIFF [facility] Consultation Noteon 03-29-19 Consultation Note Patient: VANDANA HERRERA Age: 42 years Sex: Female : 1980 Associated Diagnoses: None Author: Vangie Rizvi PA-C Subjective Chief complaint 03/25/2023 15:18 EST low back pain . Patient is a 42-year-old female. She presents today for follow-up after undergoing bilateral L4-5 and L5-S1 facet medial branch block done on for the gave her 95% relief for 2 days. The first 1 was done on 01/07/2023 and gave her 100% relief for 1 day. Both medial ranch blocks have been the thing to give her the most relief Previously, physical therapy did not help. Anti-inflammatory medications do not give any long-term relief. The medial branch blocks have given her significant relief and she is eager to get this long-term. Patient states that her back pain is much more bothersome now. She rates it a 5/10. It is back to baseline and in fact, she feels that it is may be worse than baseline. She really is eager to get some long-term relief of this. Health Status Allergies: Allergic Reactions (Selected) No Known Allergies, Allergies (1) Active Reaction No Known Allergies None Documented Current medications: (Selected) Documented Medications Documented CellCept 250 mg oral capsule: 500 mg = 2 cap(s), Oral, BID, Refills(s) 0 Fish Oil: Refill(s) 0, once per day Nexplanon 68 mg subcutaneous implant: 68 mg = 1 EA, SubCutaneous, Refills(s) 0 Turmeric: Refill(s) 0, once per day busPIRone 15 mg Tab: 15 mg = 1 tab(s), Oral, Daily, Refills(s) 0 magnesium: magnesium, once per day multivitamin: Refill(s) 0, once per day thyrosen: thyrosen, 500 mg - two tabs daily tizanidine: 4 mg, Oral, TID, Refills(s) 0 tramadol: 50 mg, Oral, TID, PRN as needed for pain, Refills(s) 0 vitamin E: once per day, Refills(s) 0 Problem list: All Problems RSD - Reflex sympathetic dystrophy / SNOMED CT 770307517 / Confirmed Tonsillectomy / SNOMED CT 262733591 / Confirmed Objective Vital Signs 03/25/2023 15:18 EST Peripheral Pulse Rate 54 bpm LOW Respiratory Rate 18 br/min Systolic Blood Pressure 114 mmHg Diastolic Blood Pressure 85 mmHg Mean Arterial Pressure, Cuff 95 mmHg General: Alert and oriented, No acute distress. Eye: Normal conjunctiva. HENT: Normocephalic, Normal hearing. Cardiovascular: No edema. Musculoskeletal Normal range of motion. Normal strength. 5/5 lower extremity strength Pain with compression of the bilateral lumbar facet joints Increased lower back pain with bilateral facet loading Integumentary: Warm, Dry, Veyo. Injection site well-healed Neurologic: Alert, Oriented. Psychiatric: Cooperative, Appropriate mood & affect. Results Review Previous lumbar imaging reviewed showing facet hypertrophy. Lumbar MRI. 09/27/2021. Impression and Plan Patient is a 42-year-old female with a past medical history significant for lumbar spondylosis and chronic lower back pain. Patient underwent second bilateral L4-5 and L5-S1 facet medial branch block done on 03/13/2023. The most recent 1 gave 95% relief for 2 days. Both medial branch blocks have been the thing to give her the most significantly. Based on her pain pattern, her imaging findings, and the significant response she got from both medial branch blocks I discussed with patient bilateral L4-5 and L5-S1 facet RFA. Procedure was discussed. Risk and benefits were discussed. Patient is agreeable. She will follow-up 3 weeks after the RFA for reevaluation. Call clinic sooner if necessary. OARRS reviewed PATRICK score: 32% Date should read 03/13/23 [facility] Comment on above: Result Comment: Elec tronically Signed By: Belkys GARCIA, Vangie\.br\Date and Time Signed: 03/29/23 07:38 EST Consent for Treatmenton 03-05 Consent for Treatment [id number]#1.00TIFF [facility] Legal Correspondence Officeo n 03-25-2023 Legal Correspondence Office [id number]#1.00TIFF [facility] Office/Clinic Note-Physician on 03-25-2023 Office/Clinic Note-Physician [id number]#1.00TIFF [facility] Patient Correspondenceon Patient Correspondence [id number]#1.00TIFF [facility] Patient Correspondence [id number]#1.00TIFF [facility] Patient Correspondence [id number]#1.00TIFF [facility] Patient Correspondence [id number]#1.00TIFF [facility] Patient Correspondence [id number]#1.00TIFF [facility] Patient History Officeon Patient History Office [id number]#1.00TIFF [facility] Consent for Procedure/Surger yon 03-13-2023 Consent for Procedure/Surgery [id number]#1.00TIFF [facility] Consent for Treatmenton 03-04 Consent for Treatment [id number]#1.00TIFF [facility] Discharge Instructionson Discharge Instructions [id number]#1.00TIFF [facility] IntraOperative Documentson 0 03-13-2023 IntraOperative Documents [id number]#1.00TIFF [facility] Main OR Intraoperative Recor don 03-13-2023 Main OR Intraoperative Record IntraOp Document Type FTPM Summary Primary Physician: Bebo Bustos DO Finalized Date/Time: 03/13/23 10:54:38 Pt. Name: VANDANA HERRERA Zoe Richard/Sex: 1980 Female Med Rec #: [id number] Physician: Bebo Bustos DO Financial #: [id number] Pt. Type: P Room/Bed: / Admit/Disch: 03/13/23 10:14:11 - Institution: Case Times FTPM Entry 1 Patient Times In Room 03/13/23 10:39:00 Out Room 03/13/23 10:53:00 Procedure Times Start 03/13/23 10:42:00 Stop 03/13/23 10:52:00 Anesthesia Times Last Modified By: Kriss Sam RN 03/13/23 10:53:07 Case Attendance FTPM Entry 1 Entry 2 Entry 3 Case Attendee Bebo Bustos DO, RN, Kriss Chen RN, Lakesha Campos Role Performed Surgeon - Primary Air Tester - Primary Scrub - Primary Time In 03/13/23 10:39:00 03/13/23 10:39:00 03/13/23 10:39:00 Time Out 03/13/23 10:53:00 03/13/23 10:53:00 03/13/23 10:53:00 Procedure MEDIAL BRANCH MEDIAL BRANCH MEDIAL BRANCH BLOCK(Bilateral) BLOCK(Bilateral) BLOCK(Bilateral) Comments Stone [employer]ir RTR- Siemens rep Last Modified By: Kriss Sam RN, RN, Kriss De León RN 03/13/23 10:53:08 03/13/23 10:53:08 03/13/23 10:53:08 Entry 4 Entry 5 Case Attendee Samson VO, Elver Cole Role Performed Scrub - Relief Pizza Chef Time In 03/13/23 10:39:00 03/13/23 10:39:00 Time Out 03/13/23 10:53:00 03/13/23 10:53:00 Procedure MEDIAL BRANCH MEDIAL BRANCH BLOCK(Bilateral) BLOCK(Bilateral) Comments Last Modified By: Kriss Sam RN, RN, Madison A 03/13/23 10:53:08 03/13/23 10:53:08 Perioperative Protocols FTPM Pre-Care Text: Implements protective measures prior to operative or invasive procedure, confirms identity before the operative or invasive procedure, verifies operative procedure, surgical site, and laterality Entry 1 Procedure(s) MEDIAL BRANCH Patient Identity Birthday, ID Band BLOCK(Bilateral) Verified (select at Check, Patient least 2): Participation Consents / H and P HandP, Surgery/Procedure Operative Site Present Verified Consent Marking Verified Surgical Site Yes Laterality Verified Yes Verified Procedure Verified Yes Correct Patient Yes Position Verified Availability Equipment, Medication, Prep Dry Yes Verified (If X-ray Applicable) PreOp Antibiotic No Time Out Kriss Sam RN, Roderick RN, Tristan Munoz DO, Bradford A., Hargrove, Bryce, Myers RN, Lory Fox Time Out Complete 03/13/23 10:39:00 Outcomes Met? Yes Last Modified By: Kriss Sam RN 03/13/23 10:39:56 Post-Care Text: The patient is free from signs and symptoms of injury caused by extraneous objects Allergy Information FTPM Pre-Care Text: Verifies allergies Entry 1 Allergies Reviewed? Yes Allergies Reviewed Self/Patient With Outcomes Met? Yes Last Modified By: Kriss Sam RN 03/13/23 10:26:57 Post-Care Text: The patient received appropriate medication(s) safely administered during the perioperative period Surgical Procedures FTPM Entry 1 Procedure Description Procedure MEDIAL BRANCH BLOCK Modifiers Bilateral Surgeon Description L4/5 and L5/S1 MBB Primary Procedure Yes Primary Surgeon Bebo Bustos DO Start 03/13/23 10:42:00 Stop 03/13/23 10:52:00 Anesthesia Type None Surgical Service Pain Management Wound Class 1 - Clean Last Modified By: Kriss Sam RN 03/13/23 10:53:09 General Case Data FTPM Pre-Care Text: Classifies surgical wound, implements aseptic technique, initiates traffic control Entry 1 Case Information OR Pain Proc Room Case Level Level 2 Wound Class 1 - Clean Specialty Pain Management Preop Diagnosis M47.816 Postop Same As Preop Yes Postop Diagnosis M47.816 Outcomes Met? Yes Last Modified By: Kriss Sam RN 03/13/23 10:40:29 Post-Care Text: The patient is free from signs and symptoms of infection Skin Assessment (Pre Procedure) FTPM Pre-Care Text: Implements protective measures to prevent skin/ tissue injury due to thermal or mechanical sources Evaluates for signs and symptoms of physical injury to skin and tissue Entry 1 Skin Integrity Intact, Veyo, Warm, and Skin Abnormality No Dry Outcomes Met? Yes Last Modified By: Kriss Sma RN 03/13/23 10:27:06 Post-Care Text: The patient is free from signs and symptoms of injury caused by extraneous objects Patient Positioning FTPM Pre-Care Text: Identifies physical alterations that require additional precautions for procedure-specific positioning, verifies presence of prosthetics or corrective devices, positions the patient, evaluates the patient for signs and symptoms of injury as a result of positioning Entry 1 Procedure MEDIAL BRANCH Body Position Prone BLOCK(Bilateral) Feet Uncrossed? Yes Left Arm Position Resting at Side Right Arm Position Resting at Side Left Leg Position Extended Right Leg Position (more content not included)... Normal [facility] Main OR Preoperative Recordo n 03-13-2023 Main OR Preoperative Record Holding Area Document Type FTPM Summary Primary Physician: Bebo Bustos DO Finalized Date/Time: 03/13/23 10:19:20 Pt. Name: VANDANA HERRERA Zoe Richard/Sex: 1980 Female Med Rec #: [id number] Physician: Bebo Bustos DO Financial #: [id number] Pt. Type: P Room/Bed: / Admit/Disch: 03/13/23 10:14:11 - Institution: Case Times Holding FTPM Pre-Care Text: Verifies consent for planned procedure, identifies individual values and wishes concerning care, includes family members in perioperative teaching Secures patient's records' belongings, and valuables, maintains patient's dignity and privacy, and maintains patient confidentiality Entry 1 In Holding 03/13/23 10:17:00 Outcomes Met? Yes Last Modified By: Di Brown RN 03/13/23 10:17:27 Post-Care Text: The patient participates in decisions affecting his or her perioperative plan of care The patient's right to privacy is maintained Surgery Checklist FTPM Entry 1 Patient Birthday, ID Band Procedure History and Physical, Identification: Check, Patient Verification: With Patient Participation NPO after Midnight: No Results Reviewed water this AM Comments: Personal Items: Jewelry Personal Items watch Comment: Complaints of Pain: Yes Pain Comment: 11/11 lower back Operative Site Yes Marked By: Dr Bustos Marking: Location: bilateral L5/S1 MBB #2 Availability Equipment, X-Ray Verified: Does Patient Smoke No Case Cancelled in No Holding Area see comments below for reason Last Modified By: Di Brown RN 03/13/23 10:19:15 Finalized By: Di Brown RN Document Signatures Signed By: Di Brown RN 03/13/23 10:19 [facility] Patient Correspondenceon Patient Correspondence [id number]#1.00TIFF [facility] Insurance Correspondence Off iceon 02-08-2023 Insurance Correspondence Office [id number]#2.00TIFF [facility] Consent for Treatmenton 01-03 Consent for Treatment [id number]#1.00TIFF [facility] Consultation Noteon 01-23-20 Consultation Note Patient: VANDANA HERRERA Age: 42 years Sex: Female : 1980 Associated Diagnoses: None Author: Rufino Myers MD Subjective Chief complaint 01/22/2023 10:15 EST Back Pain . 42-year-old female with a history of lumbar spondylosis following up from her first set of diagnostic facet blocks to the bilateral L4-5 and L5-S1 joints on 01/07/2023. The patient experienced 100% relief of her typical severe axial low back pain directly following the procedure. The relief lasted for 1 full day and persisted a 50% for several days following the injection. No apparent complications from the procedure. During the time the patient was experiencing relief she was able to bend, twist, get in and out of a chair without any significant pain. Those activities are very difficult for the patient typically. Pain is back to baseline. She currently rates her pain as a 5 to a 7 out of 10 on the numeric rating scale with an PATRICK of 30. No apparent complications from the procedure. She is here to discuss further treatment options. Patient states that she has not had that sort of relief of her chronic axial low back pain for many years. She was so happy that she was in tears. Health Status Allergies: Allergic Reactions (All) No Known Allergies Current medications: (Selected) Documented Medications Documented CellCept 250 mg oral capsule: 500 mg = 2 cap(s), Oral, BID, Refills(s) 0 Fish Oil: Refill(s) 0, once per day Nexplanon 68 mg subcutaneous implant: 68 mg = 1 EA, SubCutaneous, Refills(s) 0 Turmeric: Refill(s) 0, once per day busPIRone 15 mg Tab: 15 mg = 1 tab(s), Oral, Daily, Refills(s) 0 magnesium: magnesium, once per day multivitamin: Refill(s) 0, once per day thyrosen: thyrosen, 500 mg - two tabs daily tizanidine: 4 mg, Oral, TID, Refills(s) 0 tramadol: 50 mg, Oral, TID, PRN as needed for pain, Refills(s) 0 vitamin E: once per day, Refills(s) 0 Problem list: All Problems RSD - Reflex sympathetic dystrophy / SNOMED CT 341832758 / Confirmed Tonsillectomy / SNOMED CT 590794621 / Confirmed Objective Vital Signs 01/22/2023 10:15 EST Peripheral Pulse Rate 58 bpm LOW Respiratory Rate 14 br/min Systolic Blood Pressure 132 mmHg Diastolic Blood Pressure 80 mmHg Mean Arterial Pressure, Cuff 97 mmHg General: No acute distress. Alert and oriented x3. Well-nourished. Well-developed. Musculoskeletal: Injection sites healed. Pain with distinct lumbar facet loading bilaterally. Mild pain with flexion lumbar spine. Sacroiliac joints are nontender to palpation. Full range of motion bilateral hips without pain. Neuro: 5/5 strength of bilateral lower extremities. Normal gait. Impression and Plan 42-year-old female with severe chronic axial low back pain that is likely due to lumbar spondylosis and facet mediated based on her response to diagnostic facet blocks to the L4-5 and L5-S1 joints on 01/07/2023. The patient experience significant relief of her severe low back pain for the duration of the local anesthetic (100%) during which time she was much more functional. I recommend repeating the diagnostic blocks to confirm etiology of pain. If she again experiences significant improvement of pain and function for the duration of the local anesthetic the patient would be a candidate for radiofrequency ablation at the same levels to provide longer lasting relief. The patient is excited to proceed. Risk, benefits, and alternatives were reviewed with the patient. She voiced understanding. Follow-up 1 week after the procedure to assess response. Patient agrees with plan of care. Normal [facility] Comment on above: Result Comment: Elec tronically Signed By: Lucia CHAVEZ, Rufino Gerardo.jose\Date and Time Signed: 01/22/23 10:35 EST Office/Clinic Note-Physician on 01-22-2023 Office/Clinic Note-Physician [id number]#1.00TIFF [facility] Patient Correspondenceon Patient Correspondence [id number]#1.00TIFF [facility] Patient Correspondence [id number]#1.00TIFF Normal [facility] Patient Correspondence [id number]#1.00TIFF Normal [facility] Patient History Officeon Patient History Office [id number]#1.00TIFF Normal [facility] Consent for Procedure/Surger yon 01-07-2023 Consent for Procedure/Surgery [id number]#1.00TIF F [facility] Consent for Treatmenton Consent for Treatment [id number]#1.00TIFF [facility] Discharge Instructionson Discharge Instructions [id number]#1.00TIF F [facility] IntraOperative Documentson 1 03-09-2022 IntraOperative Documents [id number]#1.00TIF F [facility] Main OR Intraoperative Recor don 01-07-2023 Main OR Intraoperative Record IntraOp Document Type FTPM Summary Primary Physician: Rufino Myers MD Finalized Date/Time: 01/07/23 09:07:03 Pt. Name: VANDANA HERRERA/Sex: 1980 Female Med Rec #: [id number] Physician: Rufino Myers MD Financial #: [id number] Pt. Type: P Room/Bed: / Admit/Disch: 01/07/23 08:21:34 - Institution: Case Times FTPM Entry 1 Patient Times In Room 01/07/23 09:00:00 Out Room 01/07/23 09:07:00 Procedure Times Start 01/07/23 09:03:00 Stop 01/07/23 09:06:00 Anesthesia Times Last Modified By: GustavoLakesha oreilly RN 01/07/23 09:06:49 Case Attendance FTPM Entry 1 Entry 2 Entry 3 Case Attendee Lucia CHAVEZ, Rufino Chen RN, Lakesha Sam RN, Kriss Phillips Role Performed Surgeon - Primary Air Tester - Primary Scrub - Primary Time In 01/07/23 09:00:00 01/07/23 09:00:00 01/07/23 09:00:00 Time Out 01/07/23 09:07:00 01/07/23 09:07:00 01/07/23 09:07:00 Procedure MEDIAL BRANCH MEDIAL BRANCH MEDIAL BRANCH BLOCK(Bilateral) BLOCK(Bilateral) BLOCK(Bilateral) Comments Last Modified By: Gustavo VO, Lakesha Chen RN, Lakesha Long RN 01/07/23 09:06:58 01/07/23 09:06:58 01/07/23 09:06:58 Entry 4 Case Attendee Elver Luz Role Performed Pizza Chef Time In 01/07/23 09:00:00 Time Out 01/07/23 09:07:00 Procedure MEDIAL BRANCH BLOCK(Bilateral) Comments Last Modified By: Lakesha Chen RN 01/07/23 09:06:58 Perioperative Protocols FTPM Pre-Care Text: Implements protective measures prior to operative or invasive procedure, confirms identity before the operative or invasive procedure, verifies operative procedure, surgical site, and laterality Entry 1 Procedure(s) MEDIAL BRANCH Patient Identity Birthday, ID Band BLOCK(Bilateral) Verified (select at Check, Patient least 2): Participation Consents / H and P HandP, Surgery/Procedure Operative Site Present Verified Consent Marking Verified Surgical Site Yes Laterality Verified Yes Verified Procedure Verified Yes Correct Patient Yes Position Verified Availability Equipment, Medication, Prep Dry Yes Verified (If X-ray Applicable) PreOp Antibiotic No Time Out Gustavo VO, Lakesha Campos, Given Jose Luis Sam RN, Lucia Camarena MD, Natty Valenzuela Bryce Time Out Complete 01/07/23 09:00:00 Outcomes Met? Yes Last Modified By: Lakesha Chen RN 01/07/23 09:03:21 Post-Care Text: The patient is free from signs and symptoms of injury caused by extraneous objects Allergy Information FTPM Pre-Care Text: Verifies allergies Entry 1 Allergies Reviewed? Yes Allergies Reviewed Self/Patient With Outcomes Met? Yes Last Modified By: Lakesha Chen RN 01/07/23 08:57:25 Post-Care Text: The patient received appropriate medication(s) safely administered during the perioperative period Surgical Procedures FTPM Entry 1 Procedure Description Procedure MEDIAL BRANCH BLOCK Modifiers Bilateral Surgeon Description L4/5, L5/S1 MBB Primary Procedure Yes Primary Surgeon Rufino Myers MD Start 01/07/23 09:03:00 Stop 01/07/23 09:06:00 Anesthesia Type None Surgical Service Pain Management Wound Class 1 - Clean Last Modified By: Lakesha Chen RN 01/07/23 09:07:00 General Case Data FTPM Pre-Care Text: Classifies surgical wound, implements aseptic technique, initiates traffic control Entry 1 Case Information OR Pain Proc Room Case Level Level 2 Wound Class 1 - Clean Specialty Pain Management Preop Diagnosis M47.816 Postop Same As Preop Yes Postop Diagnosis M47.816 Outcomes Met? Yes Last Modified By: Lakesha Chen RN 01/07/23 09:03:32 Post-Care Text: The patient is free from signs and symptoms of infection Skin Assessment (Pre Procedure) FTPM Pre-Care Text: Implements protective measures to prevent skin/ tissue injury due to thermal or mechanical sources Evaluates for signs and symptoms of physical injury to skin and tissue Entry 1 Skin Integrity Intact, [place], Warm, and Skin Abnormality No Dry Outcomes Met? Yes Last Modified By: Lakesha Chen RN 01/07/23 08:57:32 Post-Care Text: The patient is free from signs and symptoms of injury caused by extraneous objects Patient Positioning FTPM Pre-Care Text: Identifies physical alterations that require additional precautions for procedure-specific positioning, verifies presence of prosthetics or corrective devices, positions the patient, evaluates the patient for signs and symptoms of injury as a result of positioning Entry 1 Procedure MEDIAL BRANCH Body Position Prone BLOCK(Bilateral) Feet Uncrossed? Yes Left Arm Position Resting at Side Right Arm Position Resting at Side Left Leg Position Extended Right Leg Position Extended Positioning Device Pillow Under Head Large, Safety Strap, Pillow Large Under Knees Press Points Checked Yes By Lakesha Chen RN Outcomes Met? Yes Last Modified By: Lakesha Chen RN 01/07/23 09:03:43 Post-Ca (more content not included)... Normal [facility] Main OR Preoperative Recordo n 01-07-2023 Main OR Preoperative Record Holding Area Document Type FTPM Summary Primary Physician: Rufino Myers MD Finalized Date/Time: 01/07/23 08:37:18 Pt. Name: VANDANA HERRERA Zoe Richard/Sex: 1980 Female Med Rec #: [id number] Physician: Rufino Myers MD Financial #: [id number] Pt. Type: P Room/Bed: / Admit/Disch: 01/07/23 08:21:34 - Institution: Case Times Holding FTPM Pre-Care Text: Verifies consent for planned procedure, identifies individual values and wishes concerning care, includes family members in perioperative teaching Secures patient's records' belongings, and valuables, maintains patient's dignity and privacy, and maintains patient confidentiality Entry 1 In Holding 01/07/23 08:35:00 Outcomes Met? Yes Last Modified By: Carline Silverio RN 01/07/23 08:35:34 Post-Care Text: The patient participates in decisions affecting his or her perioperative plan of care The patient's right to privacy is maintained Surgery Checklist FTPM Entry 1 Patient Birthday, ID Band Procedure History and Physical, Identification: Check, Patient Verification: Surgical Consent, With Participation Patient NPO after Midnight: Yes Date/Time: 01/07/23 08:35:00 Results Reviewed N/A Personal Items: Jewelry Comments: Personal Items Pt. wearing a watch. Complaints of Pain: Yes Comment: Pain Comment: 08/11 lower back pain Operative Site Yes Marking: Marked By: Dr. Myers Location: bilateral L4-S1 Availability Equipment, X-Ray Verified: Does Patient Smoke No Patient states Yes Comment - Adult friend-Peg postop adult Supervision supervision available Case Cancelled in No Holding Area see comments below for reason Last Modified By: Carline Silverio RN 01/07/23 08:37:14 Finalized By: Carline Silverio RN Document Signatures Signed By: Carline Silverio RN 01/07/23 08:37 Carline Silverio RN 01/07/23 08:37 Normal [facility] Operative Reporton Operative Report Patient: VANDANA HRERERA Age: 42 years Sex: Female : 1980 Associated Diagnoses: None Author: Rufino Myers MD Procedure Procedure: Lumbar Facet Medial Branch Blocks to the Bilateral L4/5 and L5/S1 Facet Joints with Fluoroscopic Guidance Diagnosis: Lumbar Spondylosis without myelopathy Anesthesia: local The patient was identified in the pre-op area. The procedure, including risks benefits and alternatives was discussed with the patient. The patient agreed to proceed. Informed consent was obtained and the site(s) marked. The patient was brought to the procedure room and placed in the prone position with padding under the abdomen to reduce lumbar lordosis. Time out was performed. The back was prepped and draped in sterile fashion with Chloraprep. Skin and subcutaneous tissues were anesthetized with 6 mL of Lidocaine 2% through a 25G needle. 22G spinal needles were then advanced under fluoroscopic guidance to the locations of the medial branch (dorsal rami) nerves to the bilateral L4/5 and L5/S1 facet joints. 0.1 mL of Isovue contrast was injected at each level demonstrating appropriate spread without vascular uptake. After confirmation of negative aspiration, 0.5mL of 0.5% bupivacaine was injected through each of the six needles. The needles were removed and bandages applied. The patient was brought to the recovery area in stable condition and then monitored for an appropriate period of time. The patient was discharged home in good condition with post-procedure instructions. No apparent complications. Epidural injection procedure Physical Exam: vital signs Vital Signs 01/07/2023 8:32 EST Heart Rate Monitored 63 bpm SpO2 97 % 01/07/2023 8:32 EST Temperature Axillary 37.1 DegC HI 01/07/2023 8:31 EST Systolic Blood Pressure 128 mmHg Diastolic Blood Pressure 84 mmHg Mean Arterial Pressure, Monitered 99 mmHg 01/07/2023 8:31 EST Respiratory Rate 14 br/min . Normal [facility] Comment on above: Result Comment: Elec tronically Signed By: Rufino Myers MD\.br\Date and Time Signed: 01/07/23 09:07 EST Patient Correspondenceon Patient Correspondence [id number]#1.00CD:12 7 Normal [facility] Insurance Correspondence Off iceon 11-26-2022 Insurance Correspondence Office [id number]#2.00CD:12 7 Normal [facility] CBC W Auto Differential pane l (Bld)on 11-16-2022 Basophils (Bld) [#/Vol] 0.06 10*3/uL Normal <0.11 [facility] Comment on above: Order Comment: Speci men Type: BLOOD SPECIMEN Ordering Facility: [facility] Address: [address] [place] [address] Performed By: #### 5 7021-8 #### [facility] CLIA [id number] [address] [place] [address] [place] Basophils/100 WBC (Bld) 0.6 % Normal [facility] Comment on above: Order Comment: Speci men Type: BLOOD SPECIMEN Ordering Facility: [facility] Address: [address] [place] [address] Performed By: #### 5 7021-8 #### [facility] CLIA [id number] [address] [place] [address] [place] Differential cell count method Nom (Bld) Auto Normal [facility] Comment on above: Order Comment: Speci men Type: BLOOD SPECIMEN Ordering Facility: [facility] Address: [address] [address] Performed By: #### 5 7021-8 #### [facility] CLIA [id number] [address] [place] [address] [place] Eosinophils (Bld) [#/Vol] 0.06 10*3/uL Normal <0.46 [facility] Comment on above: Order Comment: Speci men Type: BLOOD SPECIMEN Ordering Facility: [facility] Address: [address] [place] [address] Performed By: #### 5 7021-8 #### [facility] CLIA [id number] [address] [place] [address] [place] Eosinophils/100 WBC (Bld) 0.6 % Normal [facility] Comment on above: Order Comment: Speci men Type: BLOOD SPECIMEN Ordering Facility: [facility] Address: [address] [place], [place] [address] Performed By: #### 5 7021-8 #### [facility] CLIA [id number] [address] [place] [address] [place] Erythrocyte distribution width (RBC) [Ratio] 11.8 % Normal 11.5-15.0 [facility] Comment on above: Order Comment: Speci men Type: BLOOD SPECIMEN Ordering Facility: [facility] Address: [address] [place], [place] [address] Performed By: #### 5 7021-8 #### [facility] CLIA [id number] [address] [place] [address] [place] Hematocrit (Bld) [Volume fraction] 43.9 % Normal 36.0-46.0 [facility] Comment on above: Order Comment: Speci men Type: BLOOD SPECIMEN Ordering Facility: [facility] Address: [address] [place] [address] Performed By: #### 5 7021-8 #### [facility] CLIA [id number] [address] [place] [address] [place] Hemoglobin (Bld) [Mass/Vol] 14.7 g/dL Normal 11.5-15.5 [facility] Comment on above: Order Comment: Speci men Type: BLOOD SPECIMEN Ordering Facility: [facility] Address: [address] [place] [address] Performed By: #### 5 7021-8 #### [facility] CLIA [id number] [address] [place] [address] [place] Immature granulocytes (Bld) [#/Vol] 0.03 10*3/uL Normal <0.10 [facility] Comment on above: Order Comment: Speci men Type: BLOOD SPECIMEN Ordering Facility: [facility] Address: [address] [place] [address] Performed By: #### 5 7021-8 #### [facility] CLIA [id number] [address] [place] [address] [place] Immature granulocytes/100 WBC (Bld) 0.3 % Normal [facility] Comment on above: Order Comment: Speci men Type: BLOOD SPECIMEN Ordering Facility: [facility] Address: [address] [place] [address] Performed By: #### 5 7021-8 #### [facility] CLIA [id number] [address] [place] [address] [place] Lymphocytes (Bld) [#/Vol] 3.67 10*3/uL Normal 1.00-4.00 [facility] Comment on above: Order Comment: Speci men Type: BLOOD SPECIMEN Ordering Facility: [facility] Address: [address] [place] [address] Performed By: #### 5 7021-8 #### [facility] CLIA [id number] [address] [place] [address] [place] Lymphocytes/100 WBC (Bld) 37.5 % Normal [facility] Comment on above: Order Comment: Speci men Type: BLOOD SPECIMEN Ordering Facility: [facility] Address: [address] [place] [address] Performed By: #### 5 7021-8 #### [facility] CLIA [id number] [address] [place] [address] [place] MCH (RBC) [Entitic mass] 31.8 pg Normal 26.0-34.0 [facility] Comment on above: Order Comment: Speci men Type: BLOOD SPECIMEN Ordering Facility: [facility] Address: [address] Performed By: #### 5 7021-8 #### [facility] CLIA [id number] [address] [place] [address] [place] MCHC (RBC) [Mass/Vol] 33.5 g/dL Normal 30.5-36.0 [facility] Comment on above: Order Comment: Speci men Type: BLOOD SPECIMEN Ordering Facility: [facility] Address: [address] Performed By: #### 5 7021-8 #### [facility] CLIA [id number] [address] [place] [address] [place] MCV (RBC) [Entitic vol] 95.0 fL Normal 80.0-100.0 [facility] Comment on above: Order Comment: Speci men Type: BLOOD SPECIMEN Ordering Facility: [facility] Address: [address] Performed By: #### 5 7021-8 #### [facility] CLIA [id number] [address] [place] [address] [place] Monocytes (Bld) [#/Vol] 0.50 10*3/uL Normal <0.87 [facility] Comment on above: Order Comment: Speci men Type: BLOOD SPECIMEN Ordering Facility: [facility] Address: [address] [place] [address] Performed By: #### 5 7021-8 #### [facility] CLIA [id number] [facility] [place] [address] [place] Monocytes/100 WBC (Bld) 5.1 % Normal [facility] Comment on above: Order Comment: Speci men Type: BLOOD SPECIMEN Ordering Facility: [facility] Address: [address] Performed By: #### 5 7021-8 #### [facility] CLIA [id number] [address] [place] [address] [place] Neutrophils (Bld) [#/Vol] 5.47 10*3/uL Normal 1.45-7.50 [facility] Comment on above: Order Comment: Speci men Type: BLOOD SPECIMEN Ordering Facility: [facility] Address: [address] [place] [address] Performed By: #### 5 7021-8 #### [facility] CLIA [id number] [address] [place] [address] [place] Neutrophils/100 WBC (Bld) 55.9 % Normal [facility] Comment on above: Order Comment: Speci men Type: BLOOD SPECIMEN Ordering Facility: [facility] Address: [address] [place] [address] Performed By: #### 5 7021-8 #### [facility] CLIA [id number] [address] [place] [address] [place] Nucleated RBC (Bld) [#/Vol] 10*3/uL Normal <0.01 [facility] Comment on above: Order Comment: Speci men Type: BLOOD SPECIMEN Ordering Facility: [facility] Address: [address] [place], [place] [address] Performed By: #### 5 7021-8 #### [facility] CLIA [id number] [facility] [place] [address] [place] Nucleated RBC/100 WBC (Bld) [Ratio] 0.0 /100 WBC Normal [facility] Comment on above: Order Comment: Speci men Type: BLOOD SPECIMEN Ordering Facility: [facility] Address: [address] [place], [place] [address] Performed By: #### 5 7021-8 #### [facility] CLIA [id number] [address] [place] [address] [place] Platelet mean volume (Bld) [Entitic vol] 9.5 fL Normal 9.0-12.7 [facility] Comment on above: Order Comment: Speci men Type: BLOOD SPECIMEN Ordering Facility: [facility] Address: [address] Performed By: #### 5 7021-8 #### [facility] CLIA [id number] [address] [place] [address] [place] Platelets (Bld) [#/Vol] 329 10*3/uL Normal 150-400 [facility] Comment on above: Order Comment: Speci men Type: BLOOD SPECIMEN Ordering Facility: [facility] Address: [address] [place] [address] Performed By: #### 5 7021-8 #### [facility] CLIA [id number] [address] [place] [address] [place] RBC (Bld) [#/Vol] 4.62 10*6/uL Normal 3.90-5.20 [facility] Comment on above: Order Comment: Speci men Type: BLOOD SPECIMEN Ordering Facility: [facility] Address: [address] [place] [address] Performed By: #### 5 7021-8 #### [facility] CLIA [id number] [address] [place] [address] [place] WBC (Bld) [#/Vol] 9.79 10*3/uL Normal 3.70-11.00 [facility] Comment on above: Order Comment: Speci men Type: BLOOD SPECIMEN Ordering Facility: [facility] Address: [address] [place] [address] Performed By: #### 5 7021-8 #### [facility] CLIA [id number] [address] [place] [address] [place] Basophils (Bld) [#/Vol] 0.06 10*3/uL <0.11 k/uL [facility] Basophils/100 WBC (Bld) 0.6 % [facility] Differential cell count method Nom (Bld) Auto [facility] Eosinophils (Bld) [#/Vol] 0.06 10*3/uL <0.46 k/uL [facility] Eosinophils/100 WBC (Bld) 0.6 % [facility] Erythrocyte distribution width (RBC) [Ratio] 11.8 % 11.5 - 15.0 % [facility] Hematocrit (Bld) [Volume fraction] 43.9 % 36.0 - 46.0 % [facility] Hemoglobin (Bld) [Mass/Vol] 14.7 g/dL 11.5 - 15.5 g/dL [facility] Immature granulocytes (Bld) [#/Vol] 0.03 10*3/uL <0.10 k/uL [facility] Immature granulocytes/100 WBC (Bld) 0.3 % [facility] Lymphocytes (Bld) [#/Vol] 3.67 10*3/uL 1.00 - 4.00 k/uL [facility] Lymphocytes/100 WBC (Bld) 37.5 % [facility] MCH (RBC) [Entitic mass] 31.8 pg 26.0 - 34.0 pg [facility] MCHC (RBC) [Mass/Vol] 33.5 g/dL 30.5 - 36.0 g/dL [facility] MCV (RBC) [Entitic vol] 95.0 fL 80.0 - 100.0 fL [facility] Monocytes (Bld) [#/Vol] 0.50 10*3/uL <0.87 k/uL [facility] Monocytes/100 WBC (Bld) 5.1 % [facility] Neutrophils (Bld) [#/Vol] 5.47 10*3/uL 1.45 - 7.50 k/uL [facility] Neutrophils/100 WBC (Bld) 55.9 % [facility] Nucleated RBC (Bld) [#/Vol] <0.01 k/uL [facility] Nucleated RBC/100 WBC (Bld) [Ratio] 0.0 /100 WBC [facility] Platelet mean volume (Bld) [Entitic vol] 9.5 fL 9.0 - 12.7 fL [facility] Platelets (Bld) [#/Vol] 329 10*3/uL 150 - 400 k/uL [facility] RBC (Bld) [#/Vol] 4.62 10*6/uL 3.90 - 5.2 0 m/uL [facility] WBC (Bld) [#/Vol] 9.79 10*3/uL 3.70 - 11.00 k/uL [facility] Comprehensive metabolic 2000 panelon 11-16-2022 Albumin [Mass/Vol] 4.6 g/dL 3.9 - 4.9 g/dL [facility] ALP [Catalytic activity/Vol] 58 U/L 34 - 123 U/L [facility] ALT [Catalytic activity/Vol] 17 U/L 7 - 38 U/L [facility] Anion gap [Moles/Vol] 12 mmol/L 9 - 18 mmol/L [facility] AST [Catalytic activity/Vol] 21 U/L 13 - 35 U/L [facility] Bilirubin [Mass/Vol] 0.3 mg/dL 0.2 - 1.3 mg/dL [facility] Calcium [Mass/Vol] 9.8 mg/dL 8.5 - 10. 2 mg/dL [facility] Chloride [Moles/Vol] 103 mmol/L 97 - 105 mmol/L [facility] CO2 [Moles/Vol] 24 mmol/L 22 - 30 mmol/L [facility] Creatinine [Mass/Vol] 0.85 mg/dL 0.58 - 0.96 mg/dL [facility] Estimated Glomerular Filtration Rate 87 mL/min/1.73m >=60 mL/min/1.73 m [facility] Glucose [Mass/Vol] 116 mg/dL High 74 - 99 mg/dL [facility] Potassium [Moles/Vol] 5.1 mmol/L 3.7 - 5.1 mmol/L [facility] Protein [Mass/Vol] 6.8 g/dL 6.3 - 8.0 g/dL [facility] Sodium [Moles/Vol] 139 mmol/L 136 - 144 mmol/L [facility] Urea nitrogen [Mass/Vol] 20 mg/dL 7 - 21 mg/dL [facility] Albumin [Mass/Vol] 4.6 g/dL Normal 3.9-4.9 [facility] Comment on above: Order Comment: Speci men Type: BLOOD SPECIMEN Ordering Facility: [facility] Address: [address] [place] [address] Performed By: #### 2 4323-8 #### [facility] CLIA [id number] [address] [place] [address] [place] ALP [Catalytic activity/Vol] 58 U/L Normal 34-123 [facility] Comment on above: Order Comment: Speci men Type: BLOOD SPECIMEN Ordering Facility: [facility] Address: [address] [place] [address] Performed By: #### 2 4323-8 #### [facility] CLIA [id number] [address] [place] [address] [place] ALT [Catalytic activity/Vol] 17 U/L Normal 7-38 [facility] Comment on above: Order Comment: Speci men Type: BLOOD SPECIMEN Ordering Facility: [facility] Address: [address] [place] [address] Performed By: #### 2 4323-8 #### [facility] CLIA [id number] [address] [place] [address] [place] Anion gap [Moles/Vol] 12 mmol/L Normal 9-18 [facility] Comment on above: Order Comment: Speci men Type: BLOOD SPECIMEN Ordering Facility: [facility] Address: [address] [place] [address] Performed By: #### 2 4323-8 #### [facility] CLIA [id number] [address] [place] [address] [place] AST [Catalytic activity/Vol] 21 U/L Normal 13-35 [facility] Comment on above: Order Comment: Speci men Type: BLOOD SPECIMEN Ordering Facility: [facility] Address: [address] [place] [address] Performed By: #### 2 4323-8 #### [facility] CLIA [id number] [address] [place] [address] [place] Bilirubin [Mass/Vol] 0.3 mg/dL Normal 0.2-1.3 [facility] Comment on above: Order Comment: Speci men Type: BLOOD SPECIMEN Ordering Facility: [facility] Address: [address] [place] [address], [place] [address] Performed By: #### 2 4323-8 #### [facility] CLIA [id number] [address] [place] [address] [place] Calcium [Mass/Vol] 9.8 mg/dL Normal 8.5-10.2 [facility] Comment on above: Order Comment: Speci men Type: BLOOD SPECIMEN Ordering Facility: [facility] Address: [address] [place] [address] Performed By: #### 2 4323-8 #### [facility] CLIA [id number] [address] [place] [address] [place] Chloride [Moles/Vol] 103 mmol/L Normal 97-105 [facility] Comment on above: Order Comment: Speci men Type: BLOOD SPECIMEN Ordering Facility: [facility] Address: [address] Performed By: #### 2 4323-8 #### [facility] CLIA [id number] [address] [place] [address] [place] CO2 [Moles/Vol] 24 mmol/L Normal 22-30 [facility] Comment on above: Order Comment: Speci men Type: BLOOD SPECIMEN Ordering Facility: [facility] Address: [address] [place] [address] Performed By: #### 2 4323-8 #### [facility] CLIA [id number] [address] [place] [address] [place] Creatinine [Mass/Vol] 0.85 mg/dL Normal 0.58-0.96 [facility] Comment on above: Order Comment: Speci men Type: BLOOD SPECIMEN Ordering Facility: [facility] Address: [address] [place] [address] Performed By: #### 2 4323-8 #### [facility] CLIA [id number] [address] [place] [address] [place] Creatinine and Glomerular filtration rate.predicted panel (S/P/Bld) 87 mL/min/1.73m??? Normal >=60 [facility] Comment on above: Order Comment: Jalyn lizarraga Type: BLOOD SPECIMEN Ordering Facility: [facility] Address: [address] [place] [address] Result Comment: Nichol mated Glomerular Filtration Rate (eGFR) is calculated using the 2020 CKD-EPI creatinine equation. This equation utilizes serum creatinine, sex, and age as parameters. The creatinine assay has traceable calibration to isotope dilution-mass spectrometry. Refer to KDIGO guidelines for clinical interpretation. In patients with unstable renal function, e.g. those with acute kidney injury, the eGFR may not accurately reflect actual GFR. Performed By: #### 2 4323-8 #### [facility] CLIA [id number] [address] [place] [address] [place] Glucose [Mass/Vol] 116 mg/dL High 74-99 [facility] Comment on above: Order Comment: Jalyn lizarraga Type: BLOOD SPECIMEN Ordering Facility: [facility] Address: [address] [place] [address] Result Comment: The [place] Diabetes Association (ADA) provides guidance for cutoff values for fasting glucose and random glucose. The ADA defines fasting as no caloric intake for at least 8 hours. Fasting plasma glucose results between 100 to 125 mg/dL indicate increased risk for diabetes (prediabetes). Fasting plasma glucose results greater than or equal to 126 mg/dL meet the criteria for diagnosis of diabetes. In the absence of unequivocal hyperglycemia, results should be confirmed by repeat testing. In a patient with classic symptoms of hyperglycemia or hyperglycemic crisis, random plasma glucose results greater than or equal to 200 mg/dL meet the criteria for diagnosis of diabetes. Reference: Standards of Medical Care in Diabetes 2016, Canadian Diabetes Association. Diabetes Care. 2016.39(Suppl 1). Performed By: #### 2 4323-8 #### [facility] CLIA [id number] [facility] [place] [address] [place] Potassium [Moles/Vol] 5.1 mmol/L Normal 3.7-5.1 [facility] Comment on above: Order Comment: Speci men Type: BLOOD SPECIMEN Ordering Facility: [facility] Address: [address] Performed By: #### 2 4323-8 #### [facility] CLIA [id number] [address] [place] [address] [place] Protein [Mass/Vol] 6.8 g/dL Normal 6.3-8.0 [facility] Comment on above: Order Comment: Speci men Type: BLOOD SPECIMEN Ordering Facility: [facility] Address: [address] [place] [address] Performed By: #### 2 4323-8 #### [facility] CLIA [id number] [address] [place] [address] [place] Sodium [Moles/Vol] 139 mmol/L Normal 136-144 [facility] Comment on above: Order Comment: Speci men Type: BLOOD SPECIMEN Ordering Facility: [facility] Address: [address] Performed By: #### 2 4323-8 #### [facility] CLIA [id number] [address] [place] [address] [place] Urea nitrogen [Mass/Vol] 20 mg/dL Normal 7-21 [facility] Comment on above: Order Comment: Speci men Type: BLOOD SPECIMEN Ordering Facility: [facility] Address: [address] Performed By: #### 2 4323-8 #### [facility] CLIA [id number] [address] [place] [address] [place] Radiology Outside Office Delimer yon 11-15-2022 Radiology Outside Office Copy [id number]#1.00CD:127 Normal [facility] Radiology Outside Office Copy [id number]#1.00CD:127 Normal [facility] Consent for Treatmenton 11-02 Consent for Treatment [id number]#1.00CD:1 27 Normal [facility] Consultation Noteon 11-14-19 Consultation Note Patient: VANDANA HERRERA Age: 41 years Sex: Female : 1980 Associated Diagnoses: None Author: Rufino Myers MD Basic Information Accompanied by: No one. Source of history: Self. Referral source: LAURNE CHAVEZ, GINI Dee History limitation: None. Chief Complaint 11/13/2022 14:46 EDT lower back pain- into bilat legs History of Present Illness 41-year-old female with multiyear history of low back pain that is progressively worsening. The pain is across the low back. Hurts to first get moving in the morning. Use of diclofenac and then meloxicam have taken a slight edge off the pain. She has completed a full course of physical therapy and aqua therapy with some benefit while doing it. The patient tries to keep up on those exercises. Her pain rates anywhere from a 7 to a 10 on numeric rating scale. PATRICK is 28. Denies red flag symptoms. The pain is significantly impacting her sleep as well as her social life. The patient has seen Dr. Aguilar and was subsequently referred here to discuss further treatment options. Review of Systems Complete review of systems obtained and reviewed. Form scanned. Pertinent findings are noted in the HPI. Health Status Allergies: Allergic Reactions (All) No Known Allergies Current medications: Home Medications (16) Active busPIRone 15 mg Tab 15 mg = 1 tab(s), Oral, Daily CellCept 250 mg oral capsule 500 mg = 2 cap(s), Oral, BID diclofenac 35 mg oral capsule 35 mg = 1 cap(s), Oral, TID Fish Oil magnesium meloxicam 15 mg, Oral, Daily multivitamin Nexplanon 68 mg subcutaneous implant 68 mg = 1 EA, SubCutaneous ondansetron 4 mg, PRN, SubLingual, TID Phenergan DM 15 mg-6.25 mg/5 mL Syrup 5 mL, PRN, Oral, QID thyrosen tizanidine 4 mg, Oral, TID tramadol 50 mg, PRN, Oral, TID Turmeric vitamin E ZyrTEC D 5 mg-120 mg Tab-ER 1 tab(s), Oral, BID Problem list: All Problems RSD - Reflex sympathetic dystrophy / SNOMED CT 626217894 / Confirmed Tonsillectomy / SNOMED CT 822789498 / Confirmed Histories Past Medical History: Active RSD - Reflex sympathetic dystrophy (066812351) Tonsillectomy (133433567) Family History: No family history items have been selected or recorded. Procedure history: Mastectomy (9955343311). 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 Social History Social & Psychosocial Habits Alcohol 11/13/2022 Use: Current Comment: 3-5 drinks per week - 11/13/2022 14:47 - Beata Jones RN Substance Abuse 11/13/2022 Type: Marijuana Comment: one gummy at night. - 11/13/2022 14:48 - Beata Jones RN Tobacco 11/13/2022 Risk Assessment: Denies Tobacco Use . Physical Examination Vital Signs (last 24 hrs) Last Charted Heart Rate Peripheral 63 bpm (SEP 12 14:46) SBP 131 mmHg (SEP 12 14:46) DBP 82 mmHg (SEP 12 14:46) Weight 73.94 kg (SEP 12 14:46) BMI 26.31 (NOV 12 14:46) Constitutional: No acute distress. Well-nourished. Well-developed. Eyes: No exudate or deformity. Extraocular muscles are intact. Ears, nose, mouth, and throat: Ears and nose are without deformity. Wears a mask. Neck: No noticeable masses, tracheal deviation, or asymmetry. No thyromegaly on inspection. Respiratory: No gasping or shortness of breath. No accessory muscle use. Cardiovascular: Pulses in extremities are palpable. No noticeable lower extremity edema or varicosities. Gastrointestinal (abdomen): No distention. Lymphatic: No supraclavicular or paracervical lymphadenopathy. Skin: Inspection of skin reveals no rashes, lesions, or ulcers. Normal skin turgor. Psychiatric: Oriented to time, place, and person. Normal mood and affect. Musculoskeletal: Tender in the midline of the lumbar spine. Pain distinctly with lumbar facet loading. Limited range of motion of flexion secondary to pain. Sacroiliac joints are nontender to palpation. Good range of motion bilateral hips without pain. Rui's test negative bilaterally. Neurologic: 5/5 strength throughout bilateral lower extremities. Normal gait. Negative straight leg raise bilaterally. Able to heel and toe walk. Normal gait. Review / Management Imaging studies are not available to review yet due to computer issues. I will personally review the imaging studies later. The report of the studies demonstrate pars defects lower lumbar spine. Facet hypertrophy. Impression and Plan 41-year-old female with axial low back pain that is severe. Her pain has not responded to appropriate conservative care including physical therapy and regular use of high-dose NSAIDs. We discussed the likely etiology of her pain. We discussed the option of diagnostic facet blocks under fluoroscopy guidance to the bilateral L4-5 and L5-S1 joints. The patient experiences significant short-term relief with the diagnostic block she w (more content not included)... Normal [facility] Comment on above: Result Comment: Elec tronically Signed By: Lucia CHAVEZ, Rufino Golden\.br\Date and Time Signed: 11/13/22 15:30 EDT HIPAA Forms Officeon 023 HIPAA Forms Office [id number]#1.00CD:1 27 [facility] Legal Correspondence Officeo n 11-13-2022 Legal Correspondence Office [id number]#1.00CD:1 27 [facility] Legal Correspondence Office [id number]#1.00CD:1 27 [facility] Office/Clinic Note-Physician on 11-13-2022 Office/Clinic Note-Physician [id number]#1.00CD:1 27 [facility] Office/Clinic Note-Physician [id number]#1.00CD:1 27 Normal [facility] Patient Correspondenceon Patient Correspondence [id number]#1.00CD:1 27 Normal [facility] Patient Correspondence [id number]#1.00CD:1 27 Normal [facility] Patient Correspondence [id number]#1.00CD:1 27 Normal [facility] Patient Correspondence [id number]#1.00CD:1 27 Normal [facility] Patient Correspondence [id number]#1.00CD:1 27 Normal [facility] Patient Correspondence [id number]#1.00CD:1 27 Normal [facility] Patient History Officeon Patient History Office [id number]#1.00CD:1 27 [facility] Outside Records Officeon Outside Records Office [id number]#1.00CD:12 7 [facility] Referrals Officeon Referrals Office [id number]#1.00CD:12 7 [facility] PAP ACOG PANEL 2: 30 to 65on 05-24-2022 . . [facility] Comment on above: Result Comment: Perf ormed at: WB Performed By: #### 4 591538 #### [facility] [address] [place] [address] Dr. Xuan Robledo Age Gdln ACOG Testing 30-65 [facility] Comment on above: Performed By: #### 4 174822 #### [facility] [address] [place] [address] Dr. Xuan Robledo DIAGNOSIS: Comment Normal [facility] Comment on above: Result Comment: NEGA TIVE FOR INTRAEPITHELIAL LESION OR MALIGNANCY. Performed at: WB Performed By: #### 4 [id number] #### [facility] [address] [place] [address] Dr. Xuan Robledo HPV Aptima Negative Normal Negative [facility] Comment on above: Result Comment: This nucleic acid amplification test detects fourteen high-risk HPV types (16,18,31,33,35,39,45,51,52,56,58,59,66,68) without differentiation. Performed at: =G Performed By: #### 4 023204 #### [facility] [address] [place] [address] Dr. Xuan Robledo HPV Genotype Reflex Comment Normal [facility] Comment on above: Result Comment: Crit eria not met, HPV Genotype not performed. Performed at: WB Performed By: #### 4 [id number] #### [facility] [address] [place] [address] Dr. Xuan Robledo Methodology: Comment Normal [facility] Comment on above: Result Comment: This liquid based ThinPrep(R) pap test was screened with the use of an image guided system. Performed at: WB Performed By: #### 4 132859 #### [facility] [address] [place] [address] Dr. Xuan Robledo Note: Comment Normal [facility] Comment on above: Result Comment: The Pap smear is a screening test designed to aid in the detection of premalignant and malignant conditions of the uterine cervix. It is not a diagnostic procedure and should not be used as the sole means of detecting cervical cancer. Both false-positive and false-negative reports do occur. . Performed at: WB Performed By: #### 4 [id number] #### [facility] [address] [place] [address] Dr. Xuan Robledo Performed by: Comment Normal [facility] Comment on above: Result Comment: Gabe Cole, Steward/Stewardess Night (ASCP) Performed at: WB Performed By: #### 4 103573 #### [facility] [address] [place] [address] Dr. Xuan Robledo Specimen adequacy: Comment Normal [facility] Comment on above: Result Comment: Sati sfactory for evaluation. Endocervical and/or squamous metaplastic cells (endocervical component) are present. Performed at: WB Performed By: #### 4 [id number] #### [facility] [address] [place] [address] [address] Xuan Robledo XR lumbar spine AP/LAT/FLX/E XTon 05-16-2022 XR lumbar spine AP/LAT/FLX/EXT [facility] [place] [address] [place], [place] [address] XRay Report Signed Patient: Vandana Herrera MR#: [id number] : 1980 Acct:[id number] Age/Sex: 41 / F ADM Date: 05/16/22 Loc: XD Room: Type: [facility] Attending Dr: Gini Aguilar MD Copies to: Gini Aguilar MD Ordering Provider: Gini Aguilar MD Date of Service: 05/16/22 XR/XR lumbar spine AP/LAT/FLX/EXT: M43.16 LUMBAR SPINE - 4 views CLINICAL HISTORY: Low back pain for 2 months. COMPARISON: Lumbar spine series 06/26/2005 FINDINGS: Vertebral body heights appear maintained. There is grade 1 spondylolisthesis of L4 on L5 due to bilateral pars defects with associated moderate disc space narrowing. Finding is new compared to the 2006 study. No pathological motion is seen on flexion-extension views. 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 FINDINGS ARE NEW WHEN COMPARED TO THE 2006 STUDY. Impression dictated by: Chele Yepez Jr., DTiaOTia05/16/2022 2:56 PM Dictation Location: [place] [address] Transcribed By: [facility] 05/16/22 1453 Dictated By: Chele Yepez Jr, DO 05/16/22 1453 Signed By: 05/16/22 1459 Normal [facility] XR lumbar spine AP/LAT/FLX/EXT [facility] [employer] Other XR lumbar spine AP/LAT/FLX/EXT [facility] [employer] Other XR lumbar spine AP/LAT/FLX/EXT [address] [place] [address] [employer] Other XR lumbar spine AP/LAT/FLX/[place] [id number] [employer] Other XR lumbar spine AP/LAT/FLX/EXT XRay Report [employer] Other XR lumbar spine AP/LAT/FLX/EXT Signed [employer] Other XR lumbar spine AP/LAT/FLX/EXT Patient: Vandana Herrera MR#: [id number] [employer] Other XR lumbar spine AP/LAT/FLX/EXT : 1980 Acct:[id number] [employer] Other XR lumbar spine AP/LAT/FLX/EXT Age/Sex: 41 / F ADM Date: 05/16/22 [employer] Other XR lumbar spine AP/LAT/FLX/EXT Loc: XD Room: Type: REG CLI [employer] Other XR lumbar spine AP/LAT/FLX/EXT Attending Dr: Gini Aguilar MD [employer] Other XR lumbar spine AP/LAT/FLX/EXT Copies to: Gini Aguilar MD [employer] Other XR lumbar spine AP/LAT/FLX/EXT Ordering Provider: Gini Aguilar MD [employer] Other XR lumbar spine AP/LAT/FLX/EXT Date of Service: 05/16/22 [employer] Other XR lumbar spine AP/LAT/FLX/EXT XR/XR lumbar spine AP/LAT/FLX/EXT: M43.16 [employer] Other XR lumbar spine AP/LAT/FLX/EXT LUMBAR SPINE - 4 views [employer] Other XR lumbar spine AP/LAT/FLX/EXT CLINICAL HISTORY: Low back pain for 2 months. [employer] Other XR lumbar spine AP/LAT/FLX/EXT COMPARISON: Lumbar spine series 06/26/2005 [employer] Other XR lumbar spine AP/LAT/FLX/EXT FINDINGS: Vertebral body heights appear maintained. There is grade 1 spondylolisthesis of L4 on L5 [employer] Other XR lumbar spine AP/LAT/FLX/EXT due to bilateral pars defects with associated moderate disc space narrowing. Finding is new compared [employer] Other XR lumbar spine AP/LAT/FLX/EXT to the 2005 study. No pathological motion is seen on flexion-extension views. 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 FINDINGS ARE NEW WHEN COMPARED TO THE 2006 STUDY. [employer] Other XR lumbar spine AP/LAT/FLX/EXT Impression dictated by: Chele eYpez Jr., D.O.05/16/2022 2:56 PM [employer] Other XR lumbar spine AP/LAT/FLX/EXT Dictation Location: [place] [address] [employer] Other XR lumbar spine AP/LAT/FLX/EXT Transcribed By: TORREY 05/16/22 1456 [employer] Other XR lumbar spine AP/LAT/FLX/EXT Dictated By: Chele Yepez Jr, DO 05/16/22 1454 [employer] Other XR lumbar spine AP/LAT/FLX/EXT Signed By: [employer] Other XR lumbar spine AP/LAT/FLX/EXT 05/16/22 1455 [employer] Other MRI Lumbar Spine w/oon 05-01 MRI Lumbar Spine w/o COMPARISONS: Lumbar spine x-rays from 09/27/2021 TECHNIQUE: Multiplanar multisequence images of the lumbar spine were obtained without contrast. FINDINGS: Counting reference: The first presacral vertebral body is labeled L5. There is preservation of the lordotic curvature of the lumbar spine with grade 2 anterolisthesis of L4 on L5. There is spondylolysis of the posterior elements of L4. There is no acute fracture. There is preservation of the vertebral body heights. There is severe disc desiccation disc space narrowing at L4-L5 with moderate disc space narrowing at L5. The remaining discs are within normal limits. There is mild increased marrow signal of the articular surfaces at L4-L5. The bone marrow signal is within normal limits at the remaining levels. The distal cord and conus medullaris are within normal limits. The cauda equina is unremarkable. There is no prevertebral soft tissue swelling. The visualized retroperitoneal structures are unremarkable. L1-2: There is no disc herniation, central canal narrowing, or neural foraminal narrowing. L2-3: There is no disc herniation, central canal narrowing, or neural foraminal narrowing. L3-4: There is no disc herniation, central canal narrowing, or neural foraminal narrowing. L4-5: There is grade 2 anterolisthesis of L4 on L5 with a 2 mm symmetric disc bulge. There is moderate bilateral facet arthrosis and moderate ligamentum flavum hypertrophy producing moderate narrowing of central canal. There is moderate to severe bilateral neural foraminal narrowing which may be impinging on the exiting L4 nerve roots. L5-S1: There is a 2 mm symmetric disc bulge and mild bilateral facet arthrosis and mild ligamentum flavum hypertrophy producing mild narrowing of the central canal. There is no neural foraminal The visualized portions of the sacrum and iliac bones are within normal limits. IMPRESSION: At L4-L5 there is disc desiccation severe disc space narrowing with mild edema of the articular surfaces. There is grade 2 anterolisthesis of L4 on L5 and spondylolysis of the posterior elements of L4. There is moderate central canal narrowing and moderate to severe bilateral neural foraminal narrowing which may be impinging on the exiting bilateral L4 nerve roots. Report reported and signed by WILLARD BUNN on 05/02/2022 1155 Normal [facility] Orthophotography Technician XR Spine Lumbar Complete w/F adriano AND [place] 09-27-2021 XR Spine Lumbar Complete w/Flex AND Ext HISTORY: FINDINGS: Vertebral body heights are normal. Mild to moderate disc space loss L4-5. Sclerosis involves posterior elements of the mid and distal lumbar spine and sacroiliac joints. Chronic appearing L4 spondylolysis, 12 mm anterolisthesis. No acute fracture is identified. Soft tissues are relatively unremarkable. Flexion and extension: T12-L1 - L3-4: Normal alignment, no change L4-5: 12 mm anterolisthesis (chronic spondylolysis), no change L5-S1: Normal alignment, no change IMPRESSION: L4 spondylolysis, Grade II anterolisthesis, no change with flexion and extension Report reported and signed by Chele Buckley on 09/27/2021 1106 Normal [facility] CBC AUTO DIFFon 08-30-2021 BASO # 0.0 103/ul Normal 0.0-0.1 [facility] Comment on above: Performed By: #### C BC #### [facility] [address] [address] [address] Xuan Robledo Basophils/100 WBC (Bld) 0.6 % Normal 0.2-2.0 [facility] Comment on above: Performed By: #### C BC #### [facility] [address] [address] [address] Xuan Robledo EO # 0.0 103/ul Normal 0.0-0.7 [facility] Comment on above: Performed By: #### C BC #### [facility] [address] [address] [address] Xuan Robledo Eosinophils/100 WBC (Bld) 0.3 % Critically low 0.9-7.0 [facility] Comment on above: Performed By: #### C BC #### [facility] [address] [place] [address] Dr. Xuan Robledo Erythrocyte distribution width (RBC) [Ratio] 13.3 % Normal 11.0-15.0 [facility] Comment on above: Performed By: #### C BC #### [facility] [address] [place] [address] Dr. Xuan Robledo Hematocrit (Bld) [Volume fraction] 39.3 % Normal 36.0-48.0 [facility] Comment on above: Performed By: #### C BC #### [facility] [address] [place] [address] Dr. Xuan Robledo Hemoglobin (Bld) [Mass/Vol] 13.3 g/dL Normal 12.0-16.0 [facility] Comment on above: Performed By: #### C BC #### [facility] [address] [place] [address] Dr. Xuan Robledo IG # 0.01 10e3/ul Normal 0.00-0.03 [facility] Comment on above: Performed By: #### C BC #### [facility] [address] [place] [address] Dr. Xuan Robledo IG % 0.1 % Normal 0.0-0.5 [facility] Comment on above: Performed By: #### C BC #### [facility] [address] [place] [address] Dr. Xuan Robledo LYMPH # 1.8 103/ul Normal 1.2-3.8 [facility] Comment on above: Performed By: #### C BC #### [facility] [address] [place] [address] Dr. Xuan Robledo Lymphocytes/100 WBC (Bld) 27.0 % Normal 20.5-60.0 [facility] Comment on above: Performed By: #### C BC #### [facility] [address] [place] [address] Dr. Xuan Robledo MANUAL DIFF REQ NO Normal [facility] Comment on above: Performed By: #### C BC #### [facility] [address] [place] [address] Dr. Xuan Robledo MCH (RBC) [Entitic mass] 32.6 pg Normal 26.7-34.0 [facility] Comment on above: Performed By: #### C BC #### [facility] [address] [place] [address] Dr. Xuan Robledo MCHC (RBC) [Mass/Vol] 33.8 g/dL Normal 29.9-35.2 [facility] Comment on above: Performed By: #### C BC #### [facility] [address] [place] [address] Dr. Xuan Robledo MCV (RBC) [Entitic vol] 96.3 fL Normal 81.0-99.0 [facility] Comment on above: Performed By: #### C BC #### [facility] [address] [place] [address] Dr. Xuan Robledo MONO # 0.3 103/ul Normal 0.3-0.8 [facility] Comment on above: Performed By: #### C BC #### [facility] [address] [place] [address] Dr. Xuan Robledo Monocytes/100 WBC (Bld) 4.5 % Normal 1.7-12.0 [facility] Comment on above: Performed By: #### C BC #### [facility] [address] [place] [address] Dr. Xuan Robledo NEUT # 4.5 103/ul Normal 1.4-6.5 [facility] Comment on above: Performed By: #### C BC #### [facility] [address] [place] [address] Dr. Xuan Robledo Neutrophils/100 WBC (Bld) 67.5 % Normal 43.0-75.0 [facility] Comment on above: Performed By: #### C BC #### [facility] [address] [place] [address] Dr. Xuan Robledo Platelet mean volume (Bld) [Entitic vol] 9.2 fL Critically low 9.5-13.5 [facility] Comment on above: Performed By: #### C BC #### [facility] [address] [place], [place] [address] Dr. Xuan Robledo PLT 315 103/ul Normal 150-450 [facility] Comment on above: Performed By: #### C BC #### [facility] [address] [place], [place] [address] Dr. Xuan Robledo RBC 4.08 106/ul Critically low 4.20-5.40 [facility] Comment on above: Performed By: #### C BC #### [facility] [address] [place], [place] [address] Dr. Xuan Robledo WBC 6.7 103/ul Normal 4.0-11.0 [facility] Comment on above: Performed By: #### C BC #### [facility] [address] [place] [address] Dr. Xuan Robledo SGPTon 08-30-2021 ALT [Catalytic activity/Vol] 25 U/L Normal 14-59 [facility] Comment on above: Performed By: #### A LT #### [facility] [address] [place] [address] [id number] [address] Xuan Robledo MRI BRAIN WO/W IVCONon 11-24 MRI BRAIN WO/W IVCON * * *Final Report* * * DATE OF EXAM: Nov 24 2020 3:56PM [facility] 0295 - MRI BRAIN WO/W IVCON / PROCEDURE REASON: multiple diagnoses * * * * Physician Interpretation * * * * EXAMINATION: MRI BRAIN WO/W IVCON HISTORY: Optic disc atrophy, bilateral Optic nerve edema. TECHNIQUE: MRI brain visual pathways protocol without and with contrast. M: [id number] MR Contrast: Dotarem Contrast Dose: 16 cc Route of Administration: IV COMPARISON: None. RESULT: Acute Change: No evidence of restricted diffusion to suggest an acute infarct. Hemorrhage: No evidence of prior parenchymal hemorrhage within the constraints of the acquisition. Mass Lesion/ Mass Effect: No evidence of an intracranial mass or extra-axial fluid collection. No abnormal intracranial enhancement following contrast administration. No significant mass effect. The ocular globes appear within normal limits. The extraocular muscles are normal in size and symmetric. The optic nerves appear symmetric with diminutive in caliber, however without abnormal associated signal intensity or enhancement. There is no intraconal mass. Chronic Change: Scattered punctate foci of increased T2 and FLAIR signal are noted in the supratentorial white matter which is a nonspecific finding, but likely represents minimal chronic microvascular ischemia. Parenchyma: No significant parenchymal volume loss for age. Ventricles: Normal caliber and morphology. Skull Base: Hypothalamic and pituitary region are grossly normal. Craniocervical junction is normal. No significant marrow replacement process. Vasculature: Major intracranial arteries and dural venous sinuses demonstrate typical flow voids, suggesting patency by spin echo criteria. Other: The paranasal sinuses and mastoid air cells are clear. The orbits and extracranial soft tissues are unremarkable. IMPRESSION: No acute parenchymal infarct. No orbital mass. Symmetrically diminutive caliber of optic nerves without abnormal signal intensity or pathologic enhancement. Mainframe Analyst: JUVENCIO Transcribe Date/Time: Nov 24 2020 4:19P Dictated by : DIEGO LALA DO This examination was interpreted and the report reviewed and electronically signed by: DIEGO LALA DO on Nov 24 2020 4:26PM EST [id number] [facility] 09-13-2020 PREMA Telephone (ZEKE) ----- VANDANA HERRERA ([id number]) 1980 F Date Time Provider Department 09/13/20 TISHA PEACE During your visit today, we recorded the following information about you: Tisha Peace APRN.CNP 09/13/2020 5:35 PM Signed Called patient, having stabbing/burning pain in left breast intermittent. Went swimming with kids over the weekend, but continues to do usual amount of activity. Denies SANDS of infection Denies erythema, swelling Patient also asking about planned surgery- will check chart and have weaving supervisor call patient to schedule. 930 09/22 follow up appt added on to schedule Tisha Peace APRN.SEWING MACHINE BOBBIN WINDER Allergies As of Date: 09/13/2020 (No Known Allergies) Date Reviewed: 08/04/2020 Reviewed by: Julia Castle - Fully Assessed Reason for Visit: Returning Patient's Call [408] Primary Visit Diagnosis:S/P bilateral mastectomy [Z90.13] Other Visit Diagnosis:Encounter for preoperative screening laboratory testing for COVID-19 virus [Z01.812, Z20.822] Order(s):SURGICAL REQUEST - ELECTIVE (10/2019) [0993320] Order #: [id number]: 1 PRE-PROCEDURE AND PRE-OPERATIVE COVID [SQPOCOVD] Order #: [id number] FUTURE Prescriptions as of 09/13/2020 - silver sulfADIAZINE (SILVADENE) 1 % cream Apply to incision twice a day - Docosahexanoic Acid-Eicosapent (FISH OIL) 120-180 mg capsule Take 1 g by mouth once daily. - silver sulfADIAZINE (SILVADENE) 1 % cream Apply thin layer to incision lines and nipples twice daily;wipe away old cream before applying new layer - prednisoLONE acetate (PRED FORTE, ECONOPRED PLUS) 1 % ophthalmic suspension - RESTASIS 0.05 % ophthalmic emulsion - GABAPENTIN ORAL Take by mouth daily at bedtime. - glucosamine sulfate (GLUCOSAMINE ORAL) Take by mouth once daily. - cholecalciferol, vitamin D3, (VITAMIN D3 ORAL) Take by mouth once daily. - vitamin b complex capsule Take 1 capsule by mouth once daily. - Lactobacillus acidophilus (PROBIOTIC ORAL) Take by mouth once daily. - BIOTIN ORAL Take by mouth once daily. - ascorbic acid (VITAMIN C ORAL) Take by mouth once daily. - multivit with calcium,iron,min (WOMEN'S DAILY MULTIVITAMIN ORAL) Take by mouth once daily. Meds Comments as of 05/06/2020: Patient states that she hasn't taken any medications in a few weeks. Lily Chacon WATER RESOURCES PROGRAM DIRECTOR Problem List As Of Date 09/13/2020 Noted Resolved BRCA2 positive [Z15.01, Z15.09] 02/11/2019 Severe cervical dysplasia [D06.9] 02/11/2019 Factor V Leiden (HCC) [D68.51] 05/06/2020 BRCA positive [Z15.01, Z15.09] 05/10/2020 S/P bilateral mastectomy [Z90.13] 06/02/2020 Post-operative state [Z98.890] 06/02/2020 Shoulder stiffness, unspecified laterality [M25*06/02/2020 Encounter Status:Closed by TISHA PEACE on 09/13/20 [facility] 12-28-2019 [facility]CO HNO ID: [id number] Author: Mammography Coordinator Service: ? Author Type: Physician Type: Letter Filed: 12/29/2019 11:33 PM Note Text: December 28, 2019 PID: [id number] Vandana EnriquezTia Herrera [address] [place] [address] Dear Tia Javier, We are pleased to inform you that the results of your recent breast imaging exam on 12/28/2019 are normal. Your mammogram demonstrates that you have dense breast tissue, which could hide abnormalities. Dense breast tissue, in and of itself, is a relatively common condition. Therefore, this information is not provided to cause undue concern; rather, it is to raise your awareness and promote discussion with your health care provider regarding the presence of dense breast tissue in addition to other risk factors. Early detection of cancer is very important. We also understand recommendations regarding breast cancer screening are controversial. Please discuss with your primary care provider which strategy is best for you and whether a mammogram is right for you. Your imaging studies and report will be kept on file at [facility] as part of your permanent medical record and are available for your continuing care. Thank you for allowing us to help in meeting your health care needs. Sincerely, Dr. Cole Interpreting Radiologist [facility] (Normal over 40) [facility] SCREENING W [facility] * * *Final Report* * * DATE OF EXAM: Dec 28 2019 11:10AM [facility] [id number] - [facility] SCREENING W DAPHNEY / PROCEDURE REASON: multiple diagnoses * * * * Physician Interpretation * * * * RESULT: #[id number] - [facility] SCREENING W D[facility] BILATERAL DIGITAL SCREENING MAMMOGRAM TOMOSYNTHESIS WITH CAD: 12/28/2019 HISTORY: Multiple Diagnoses /Screening Mammogram-patient reports no symptoms. SEE TECH NOTE. RESULT: TECHNIQUE: The study was acquired using full field digital technology and interpreted from soft copy. Digital Breast Tomosynthesis (DBT) images were obtained and used to assist in the interpretation of this examination. Current study was also evaluated with a Computer Aided Detection (CAD). Comparison is made to exams dated: 12/25/2010 mammogram and 12/11/2018 mammogram. The tissue of both breasts is heterogeneously dense. This may lower the sensitivity of mammography. No significant masses, calcifications, or other findings are seen in either breast. There has been no significant interval change. IMPRESSION: NEGATIVE There is no mammographic evidence of malignancy. A 1 year screening mammogram is recommended. Alana huber/rigoberto:12/28/2019 11:54:45 Live In Caregiver(s): RT Jesus(Vikki)(Zoe), [facility] letter sent: Normal over 40 Mammogram BI-RADS: 1 Negative Multiple national specialty organizations have released breast cancer screening guidelines for women at average risk for developing breast cancer - guidelines that are based on both evidence and opinion, yet differ on when to start and how often to screen for breast cancer. With representation from Breast Imaging, Internal Medicine, Women's Health, Family Medicine, and Medical/Surgical Oncology, the [facility] has carefully reviewed the data and reached the following consensus: 1) All women should engage in shared decision-making with their providers to decide when to start and how often to screen; 2) All women should have the opportunity to start screening mammography at age 40; 3) For women ages 45-55, we recommend annual screening mammograms; 4) For women ages 55 and over, we support both the transition from an annual to a biennial interval if this aligns more with patient's values and preferences, or continuation with annual screening; 5) All women should discuss with their providers when to stop screening mammograms. Mainframe Analyst: Rigoberto Transcribe Date/Time: Dec 28 2019 11:07A Dictated by: ALANA COLE MD This examination was interpreted and the report reviewed and electronically signed by: ALANA COLE MD on Dec 28 2019 11:54AM EST [id number] Normal [facility] PROGRESSon 12-28-2019 PROGRESS HNO ID: [id number] Author: Pedro Luis Lee (Tech) Service: ? Author Type: Box Icer Type: Progress Notes Filed: 12/28/2019 11:12 AM Note Text: Radiology Service Progress Note PATIENT NAME: Vandana Herrera DATE OF SERVICE: December 28, 2019 TIME: 11:11 AM PATIENT IDENTITY VERIFICATION COMPLETED USING TWO (2) IDENTIFIERS: Name and Date of confirmed by patient verbally. FALL SCREENING: Has the patient had 2 falls in the last year or 1 fall with injury or currently using an Ambulatory Assistive Device (Walker, Cane, Wheelchair, Crutches, etc.)? No PATIENT GENDER DATA: Female. status: : No status: NO. PATIENT RELEVANT IMPLANT DATA REVIEWED: Yes RADIOLOGY DEPARTMENT: Mammography PERIPHERAL IV DATA: Not applicable SIGNED BY: Pedro Luis Lee December 28, 2019 11:11 AM Normal [facility] MRI BREAST W/ + W/O CONTRAST BILATERALon 03-19-2017 Bilirubin (total) ORIGINALFROM:[address] [address]Lxymf: [phone] PROCEDURE FOR:VANDANA BAUTISTAR[address] [place], [place] [address]Ajao: [phone]#: [id number]#: [id number]#: [id number]: 1980Age: 36 TO:BRI FARNSWORTH [facility] [address] [place] [address] #[id number] BREAST MRI OF BOTH BREASTS - WITH CAD: 03/19/2017CLINICAL: GENETIC SUSCEPTIBILITY TO MALIGNANT NEOPLASM OF BREAST/ FAMILY HX OF MALIGNANT NEOPLASM OF BREAST. Comparison is made to exams dated: 12/25/2010 mammogram and 01/26/2009 ultrasound - [facility]. Informed consent was obtained from the patient. Gadolinium contrast calibrated to patient weight was injected. Axial T1 and T2 and sagittal T1 images were obtained with a dedicated breast coil. Post processing was performed including 3D multiplanar reconstruction. Current study was also evaluated with a Computer Aided Detection (CAD) system. No enhancing mass is seen in either breast. There are no abnormalities seen in the axillary nodes region or internal mammary nodes. IMPRESSION: BENIGN Negative exam. No evidence of a breast carcinoma measuring 3 mm in size or greater. A 1 year screening breast MRI is recommended. JUAN ALBERTO CANALES MD ab/:03/21/2017 14:34:08 Live In Caregiver: TOBY UREÑA (MR), [facility] PREBLElett sent: Normal BI-RADS 1&2 MRI BI-RADS: 2 Benign Normal [facility] (ID) JSon 01-19-2017 [facility] REPORT Normal [facility] [place] JS DATE OF SERVICE: 01/19/2017HISTORY OF PRESENT ILLNESS: Mrs. Herrera is a 36-year-old female presentingto [facility] this afternoon with a complaint of nasal congestion, postnasal dripping,bilateral ear pain, and sneezing. The symptoms started 1 week ago and not gettingbetter. The patient is concerned and therefore comes in for further evaluation andtreatment. The patient denies any fever or chills, denied any headache, denied anysinus pressure or pain, denied any cough, denied any nausea or vomiting. The patienthas no primary care physician.MEDICATIONS: control.ALLERGIES: No known drug allergies.SOCIAL HISTORY: The patient is a nonsmoker and occasional alcohol drinker.FAMILY HISTORY: Significant for high blood pressure, diabetes, and cancer.REVIEW OF SYSTEMS: Per HPI.PHYSICAL EXAMINATION:Vital Signs: Temperature 98.4. Respiratory rate 16. Pulse 57. Blood vuzirlwt171/78. Pulse oximetry 98%. The pain level is 5-6/10. The patient's weight is166.3 pounds.General: This is a 36-year-old female who does not appear in pain or acutedistress.HEENT: Unremarkable except for bilateral nasal mucosa congestion. Oropharynx clear.Tympanic membranes intact; no bulging, no inflammation appreciated.Neck: Supple. Full range of motion. No lymphadenopathy.Lung: Clear to auscultation bilaterally.Heart: Regular rhythm, bradycardiac. Normal heart sounds.Abdomen: Soft, nontender.IMPRESSION: Upper respiratory infection, viral.PLAN: I discussed the findings with the patient. We will start the patient onFlonase nasal spray, 2 sprays in each nostril, 1 a day, 1 bottle, and loratadine 10mg 1 p.o. daily, number 20. I encouraged the patient to drink a lot fluid. May takeTylenol as needed. Follow up if not better. Son Svetlana Jacobs [facility]/[id number] [facility] PAT[facility] NAME: [facility]: [id number], [place] [id number] [facility] REPORT [facility] PHYSICIANDD: 01/19/2017 12:54DT: 01/21/2017 01:00SSI File#: [id number] #: [id number]/Reviewed by03/27/17 1754 LENNY [facility] PATIENT NAME: VANDANA HERRERA Negra Castro MEDICAL REC #: [id number], [place] [id number] [facility] REPORT [facility] PHYSICIAN Normal [facility] Operative Noteon 12-13-2016 Operative Note Normal [facility] ([place]) Final Surgical Pathology Rep the medical center 12-12-2016 Final Surgical Pathology Report . Pathology ReportsAccession: Collected Date/Time: Received Date/Time: Pathologist:[id number] 12/10/2016 14:35 EDT 12/11/2016 09:56 EDT MD MACEY STOVER Final Surgical Pathology ReportDIAGNOSIS:CERVIX, CONIZATION SPECIMEN: - CONDYLOMA WITH SEVERE DYSPLASIA. - CONIZATION MARGINS ARE FREE OF DYSPLASIA. -CLINICAL INFORMATION:CARCINOMA IN SITU OF EXOCERVIXProcedure: CERVICAL COLD KNIFE CONIZATIONPreoperative diagnosis: CARCINOMA IN SITU OF EXOCERVIXPostoperative diagnosis: CARCINOMA IN SITU OF EXOCERVIXSPECIMEN:_A CERVIX, CONE CERVIXGROSS DESCRIPTION:_Received in formalin labeled cervix is a 2.6 x 1.5 cm cervical cone excised to a greatest depth of 2 cm. There is a 1.5 cm central patulous os. There is a suture at one edge marking 12:00. The ectocervical mucosa is pink-welsh smooth and glistening. The specimen is inked and opened to show the endocervical mucosa is welsh-red and glistening. The transformation zone is grossly unremarkable. The specimen is serially sectioned and entirely submitted sequentially in a clockwise fashion beginning at 12:00, and 6 cassettes.Dictated by SUE RIVERA ([facility])MICROSCOPIC DESCRIPTION:Slides reviewed.Electronically Signed byPathology Report verified by [facility] Hospital[facility]ronically signed by MACEY BARRERAign out Date: 12/12/2016 15:54Performing Lab: [facility], [address] [place] [address] Normal [facility] ([place]) Comment on above: Performed By: #### S PFR ####[address] [address] .Auto Diffon 12-10-2016 Basophils Auto #/vol (Bld) 0.00 10 3/mcL Normal 0.00-0.27 [facility] ([place]) Comment on above: Performed By: #### C BC, ADIFF, ANEU, ABORH, ANTIS ####[address] [address] Basophils/100 WBC Auto (Bld) 0.5 % Normal 0.0-2.5 [facility] ([place]) Comment on above: Performed By: #### C BC, ADIFF, ANEU, ABORH, ANTIS ####[address] [address] Eosinophils 0.10 10 3/mcL Normal 0.00-0.65 [facility] ([place]) Comment on above: Performed By: #### C BC, ADIFF, ANEU, ABORH, ANTIS ####[address] [address] Eosinophils/100 leukocytes 0.9 % Normal 0.0-6.0 [facility] ([place]) Comment on above: Performed By: #### C BC, ADIFF, ANEU, ABORH, ANTIS ####[address] [address] Lymphocytes 2.10 10 3/mcL Normal 0.90-4.32 [facility] ([place]) Comment on above: Performed By: #### C BC, ADIFF, ANEU, ABORH, ANTIS ####[address] [address] Lymphocytes/100 leukocytes 31.5 % Normal 20.0-40.0 [facility] ([place]) Comment on above: Performed By: #### C BC, ADIFF, ANEU, ABORH, ANTIS ####[address] [address] Monocytes 0.40 10 3/mcL Normal 0.09-1.40 [facility] ([place]) Comment on above: Performed By: #### C BC, ADIFF, ANEU, ABORH, ANTIS ####[place] [address] Monocytes/100 leukocytes 6.8 % Normal 2.0-13.0 [facility] ([place]) Comment on above: Performed By: #### C BC, ADIFF, ANEU, ABORH, ANTIS ####[address] [address] Neutrophils/100 WBC Auto (Bld) 60.3 % Normal 50.0-75.0 [facility] ([place]) Comment on above: Performed By: #### C BC, ADIFF, ANEU, ABORH, ANTIS ####[address] [address] .NEUABSon 12-10-2016 Neutrophils 4.00 10 3/mcL Normal 2.25-8.10 [facility] ([place]) Comment on above: Performed By: #### C BC, ADIFF, ANEU, ABORH, ANTIS ####[address] [address] Anesthesiology Consultationo n 12-10-2016 Anesthesiology Consultation Normal [facility] ([place]) CBCon 12-10-2016 Erythrocyte distribution width Auto Ratio (RBC) 12.0 % Normal 11.5-15.5 [facility] ([place]) Comment on above: Performed By: #### C BC, ADIFF, ANEU, ABORH, ANTIS ####[place] [address] Erythrocytes (RBC) 4.14 10 6/mcL Normal 4.10-5.30 [facility] ([place]) Comment on above: Performed By: #### C BC, ADIFF, ANEU, ABORH, ANTIS ####[place] [address] Hematocrit (HCT) 39.6 % Normal 34.0-46.0 [facility] ([place]) Comment on above: Performed By: #### C BC, ADIFF, ANEU, ABORH, ANTIS ####[place] [address] Hemoglobin mass conc (Bld) 13.3 G/dL Normal 12.0-16.0 [facility] ([place]) Comment on above: Performed By: #### C BC, ADIFF, ANEU, ABORH, ANTIS ####[place] [address] MCH 32.1 pg Normal 27.0-33.0 [facility] ([place]) Comment on above: Performed By: #### C BC, ADIFF, ANEU, ABORH, ANTIS ####[place] [address] MCHC mass conc (RBC) 33.5 G/dL Normal 32.0-36.0 [facility] ([place]) Comment on above: Performed By: #### C BC, ADIFF, ANEU, ABORH, ANTIS ####[place] [address] MCV 95.7 fL Normal 80.0-99.0 [facility] ([place]) Comment on above: Performed By: #### C BC, ADIFF, ANEU, ABORH, ANTIS ####[place] [address] Platelet mean volume (PMV) 7.6 fL Normal 6.6-10.5 [facility] ([place]) Comment on above: Performed By: #### C BC, ADIFF, ANEU, ABORH, ANTIS ####[facility] [place] [address] Platelets 254 10 3/mcL Normal 150-450 [facility] ([place]) Comment on above: Performed By: #### C BC, ADIFF, ANEU, ABORH, ANTIS ####[facility] [place] [address] WBC (Leukocytes) 6.60 10 3/mcL Normal 4.50-10.80 [facility] ([place]) Comment on above: Performed By: #### C BC, ADIFF, ANEU, ABORH, ANTIS ####[facility] [place] [address] Depart Summaryon 12-10-2016 Depart Summary Normal [facility] ([place]) Discharge Note-Physicianon 1 Discharge Note-Physician Normal [facility] (ID) Main OR Intraop Recordon Main OR Intraop Record Normal [facility] ([place]) Outpatient Patient Summaryon 12-10-2016 Outpatient Patient Summary Normal [facility] ([place]) Procedure Noteon 12-10-2016 Procedure Note Normal [facility] ([place]) Procedure Note Normal [facility] ([place]) TABOon 12-10-2016 ABO/Rh Interp Positive Invalid Interpretation Code [facility] ([place]) Comment on above: Performed By: #### C BC, ADIFF, ANEU, ABORH, ANTIS ####[facility] [place] [address] TABSon 12-10-2016 Antibody Screen Tango Negative Normal [facility] ([place]) Comment on above: Performed By: #### C BC, ADIFF, ANEU, ABORH, ANTIS ####[facility] [place] [id number] Progress Note-Nurseon 2016 Progress Note-Nurse Normal [facility] ([place]) Discharge Summaryon 11-16-19 17 Discharge Summary Normal [facility] ([place]) Depart Summaryon 11-14-2016 Depart Summary Normal [facility] ([place]) Operative Noteon 11-14-2016 Operative Note Normal [facility] ([place]) Outpatient Patient Summaryon 11-14-2016 Outpatient Patient Summary Normal [facility] ([place]) Outpatient Procedure Recordo n 11-14-2016 Outpatient Procedure Record Normal [facility] ([place]) No Panel Information [facility] Vital Signs Date Time Vital Sign Value Performing Clinician Facility 09-20-2023 14:43-0400 Body height 170.18 cm [facility] 09-20-2023 14:43-0400 Body mass index (BMI) [Ratio] 28.5 kg/m2 [facility] 09-20-2023 14:43-0400 Body weight 82.55 kg [facility] 09-20-2023 14:43-0400 Diastolic blood pressure 80 mm[Hg] [facility] 09-20-2023 14:43-0400 Heart rate 57 /min [facility] 09-20-2023 14:43-0400 Systolic blood pressure 117 mm[Hg] [facility] 07-26-2023 14:20-0400 Diastolic blood pressure 88 mm[Hg] Vangie Rizvi [facility] 07-26-2023 14:20-0400 Heart rate 62 /min [employer] [facility] 07-26-2023 14:20-0400 Mean blood pressure 101 mm[Hg] Vangie Rizvi [facility] 07-26-2023 14:20-0400 Respiratory rate 14 /min Vangie Rizvi [facility] 07-26-2023 14:20-0400 Systolic blood pressure 126 mm[Hg] Vangie Rizvi [facility] 05-08-2023 10:03-0500 Heart rate 59 /min Bebo Bustos [facility] 05-08-2023 10:03-0500 SaO2% (BldA) [Mass fraction] 99 % Bebo Bustos [facility] 05-08-2023 10:03-0500 Diastolic blood pressure 86 mm[Hg] Bebo Bustos [facility] 05-08-2023 10:03-0500 Mean blood pressure 102 mm[Hg] Bebo Bustos [facility] 05-08-2023 10:03-0500 Systolic blood pressure 136 mm[Hg] Bebo Bustos [facility] 05-08-2023 10:03-0500 Respiratory rate 16 /min Bebo Bustos [facility] 05-08-2023 09:31-0500 Diastolic blood pressure 64 mm[Hg] Bebo Bustos [facility] 05-08-2023 09:31-0500 Heart rate 60 /min Bebo Bustos [facility] 05-08-2023 09:31-0500 Respiratory rate 14 /min Bebo Bustos [facility] 05-08-2023 09:31-0500 SaO2% (BldA) [Mass fraction] 100 % Bebo Bustos [facility] 05-08-2023 09:31-0500 Systolic blood pressure 115 mm[Hg] Bebo Bustos [facility] 05-08-2023 08:51-0500 Heart rate 60 /min Bebo Bustos [facility] 05-08-2023 08:51-0500 SaO2% (BldA) [Mass fraction] 100 % Bebo Bustos [facility] 05-08-2023 08:51-0500 Diastolic blood pressure 77 mm[Hg] Bebo Bustos [facility] 05-08-2023 08:51-0500 Mean blood pressure 94 mm[Hg] Bebo Bustos [facility] 05-08-2023 08:51-0500 Systolic blood pressure 128 mm[Hg] Bebo Bustos [facility] 05-08-2023 08:51-0500 Body temperature 98.06 [degF] Bebo Bustos [facility] 05-08-2023 08:50-0500 Respiratory rate 14 /min Bebo Bustos [facility] 03-25-2023 15:18-0500 Diastolic blood pressure 85 mm[Hg] Vangie Rizvi [facility] 03-25-2023 15:18-0500 Heart rate 54 /min Vangie Rizvi [facility] 03-25-2023 15:18-0500 Mean blood pressure 95 mm[Hg] Vangie Rizvi [facility] 03-25-2023 15:18-0500 Respiratory rate 18 /min Vangie Rizvi [facility] 03-25-2023 15:18-0500 Systolic blood pressure 114 mm[Hg] Vangie Rizvi [facility] 01-22-2023 10:15-0500 Diastolic blood pressure 80 mm[Hg] Rufino Lucia [facility] 01-22-2023 10:15-0500 Heart rate 58 /min Rufino Lucia [facility] 01-22-2023 10:15-0500 Mean blood pressure 97 mm[Hg] Rufino Lucia [facility] 01-22-2023 10:15-0500 Respiratory rate 14 /min Rufino Lucia [facility] 01-22-2023 10:15-0500 Systolic blood pressure 132 mm[Hg] Rufino Lucia [facility] 11-13-2022 14:46-0400 Diastolic blood pressure 82 mm[Hg] Rufino Lucia [facility] 11-13-2022 14:46-0400 Heart rate 63 /min Rufino Myers [facility] 11-13-2022 14:46-0400 Mean blood pressure 98 mm[Hg] Rufino Lucia [facility] 11-13-2022 14:46-0400 Respiratory rate 16 /min Rufino Myers [facility] 11-13-2022 14:46-0400 Systolic blood pressure 131 mm[Hg] Rufino Lucia [facility] 10-26-2022 10:30-0400 Body height 170.18 cm Dina Brandon Other [facility] Other 10-26-2022 10:30-0400 Body mass index (BMI) [Ratio] 26 kg/m2 Dina Brandon Other [employer] [facility] Other 10-26-2022 10:30-0400 Body temperature 97.9 [degF] Dina Brandon Other [facility] [employer] Other 10-26-2022 10:30-0400 Body weight 75.3 kg Dina Brandon Other [facility] Other 10-26-2022 10:30-0400 Diastolic blood pressure 79 mm[Hg] Dina Brandon Other [facility] Other 10-26-2022 10:30-0400 Systolic blood pressure 127 mm[Hg] Dina Brandon Other [facility] Other 08-24-2022 10:00-0400 Body height 170.18 cm Dina Brandon Other [facility] Other 08-24-2022 10:00-0400 Body mass index (BMI) [Ratio] 26.62 kg/m2 Dina Brandon Other [facility] Other 08-24-2022 10:00-0400 Body temperature 98 [degF] Dina Brandon Other [facility] Other 08-24-2022 10:00-0400 Body weight 77.11 kg Dina Brandon Other [facility] Other 08-24-2022 10:00-0400 Diastolic blood pressure 73 mm[Hg] Dina Brandon Other [facility] Other 08-24-2022 10:00-0400 Systolic blood pressure 114 mm[Hg] Dina Brandon Other [facility] Other 05-16-2022 12:00-0400 Body height Gini Blades Other [facility] Other 05-16-2022 12:00-0400 Body mass index (BMI) [Ratio] 27.25 kg/m2 Gini Blades Other [facility] Other 05-16-2022 12:00-0400 Body weight 78.93 kg Gini Blades Other [facility] Other 05-16-2022 12:00-0400 Diastolic blood pressure 80 mm[Hg] Gini Blades Other [facility] Other 05-16-2022 12:00-0400 Systolic blood pressure 118 mm[Hg] Gini Blades Other [facility] Other 05-04-2022 07:53-0500 Body weight 77.56 kg Prisca Koki [employer]WING MACH[employer] Work Phone: [facility] 05-04-2022 07:53-0500 Diastolic blood pressure 76 mm[Hg] Prisca Telles OXYACETYLENE WELDER.SEWING MACHINE [employer] Work Phone: [facility] 05-04-2022 07:53-0500 Heart rate 72 /min Prisca Koki OXYACETYLENE WELDER.SEWING MACHINE [employer] Work Phone: [facility] 05-04-2022 07:53-0500 Systolic blood pressure 122 mm[Hg] Prisca Telles OXYACETYLENE WELDER.SEWING MACHINE [employer] Work Phone: [facility] 06-29-2021 10:42-0400 Body height 170.2 cm [employer]ine [employer] Work Phone: [facility] 06-29-2021 10:42-0400 Body weight 72.58 kg Aline Cooney PA-C Work Phone: [facility] Encounters Encounter Date Encounter Type Care Provider Facility Start: 09-20-2023 Patient encounter status [facility] Start: 09-20-2023 End: 09-20-2023 ambulatory [facility] Work Phone: Start: 09-20-2023 End: 09-20-2023 Patient encounter procedure [facility] Physician [facility] Work Phone: Start: 09-11-2023 Non-patient / Non-visit [facility] Physician [facility] Work Phone: Start: 07-26-2023 End: 07-27-2023 ambulatory DINA BRANDON Facility:[facility] Start: 07-26-2023 End: 07-26-2023 Pain Management Vangie Rizvi [facility] Start: 05-22-2023 End: 05-22-2023 ambulatory DALE M WORKMAN Not Available Start: 05-08-2023 End: 05-09-2023 ambulatory DO Bebo Bustos Facility:[facility] Start: 05-08-2023 End: 05-08-2023 Pain Management Bebo Bustos [facility] Start: 03-25-2023 End: 03-26-2023 ambulatory DINA BRANDON Facility:[facility] Start: 03-25-2023 End: 03-25-2023 Pain Management Vangie Belkys [facility] Start: 03-13-2023 End: 03-14-2023 ambulatory Bebo Bustos Facility:[facility] Start: 02-07-2023 End: 02-07-2023 ambulatory Dina Brandon Other [facility] Other Start: 02-07-2023 Telephone encounter Dina Brandon [facility] Start: 01-22-2023 End: 01-23-2023 ambulatory DINA BRANDON Facility:[facility] Start: 01-22-2023 End: 01-22-2023 Pain Management Rufino Myers [facility] Start: 01-07-2023 End: 01-08-2023 ambulatory Rufino Myers Facility:[facility] Start: 11-16-2022 End: 11-17-2022 ambulatory DINA BRANDON Facility:[facility] Start: 11-16-2022 End: 11-16-2022 ambulatory DINA BRANDON Facility:[facility] Start: 11-16-2022 End: 11-16-2022 Patient encounter procedure Laura Dutton MD, PhD Work Phone: Ophthalmology Comment on above: Retinal vasculitis, bilateral (Primary Dx); Optic disc edema Start: 11-13-2022 End: 11-14-2022 ambulatory GINI AGUILAR Facility:[facility] Start: 11-13-2022 End: 11-13-2022 Pain Management Rufino Myers [facility] Start: 10-26-2022 End: 10-26-2022 ambulatory Dina Brandon Other [facility] [employer] Other Start: 10-26-2022 Office outpatient vi sit 15 minutes Dina Brandon [facility] Start: 08-29-2022 End: 08-29-2022 ambulatory Dina Brandon Other [employer] Other Start: 08-29-2022 Telephone encounter Dina Brandon [facility] Start: 08-24-2022 End: 08-24-2022 ambulatory Dina Brandon Other [facility] Other Start: 08-24-2022 Office outpatient vi sit 15 minutes Dina Brandon [facility] Start: 05-18-2022 End: 05-18-2022 ambulatory Dina Brandon Other [facility] Other Start: 05-18-2022 Telephone encounter Dina Brandon [facility] Start: 05-16-2022 End: 05-16-2022 ambulatory Dina Brandon Facility:[facility] Start: 05-16-2022 End: 05-16-[address] SHALONDA HERNANDEZ . Facility: Start: 05-16-2022 Office outpatient ne w 45 minutes Gini Aguilar [facility] Start: 05-16-2022 Telephone encounter Dina Brandon [facility] Start: 05-09-2022 (Televisit) Televisit Dina [facility] Start: 05-09-2022 End: 05-09-2022 ambulatory Dina Brandon Other [facility] [employer] Other Start: 05-04-2022 End: 05-04-2022 Patient encounter procedure Prisca Telles APRN.SEWING MACHINE [employer] Work Phone: Rheumatology Comment on above: Recurrent iritis of both eyes (Primary Dx); Retinal vasculitis, unspecified laterality; AVIS positive; Panuveitis of both eyes; Optic atrophy; Optic disc edema; Pain in both hands; Other fatigue; Joint stiffness; Polyarthralgia; Immunosuppression due to drug therapy (HCC) Start: 05-03-2022 End: 05-03-2022 Patient encounter procedure Laura Dutton MD, PhD Work Phone: Ophthalmology Comment on above: Optic disc edema Start: 09-15-2021 Telephone encounter Prisca millan APRN.SEWING MACHINE [employer] Work Phone: Rheumatology Comment on above: Results Start: 08-30-2021 End: 08-31-[address] DOCTOR RAMÍREZ Facility: Start: 07-13-2021 End: 07-13-2021 Patient encounter procedure Bri Fields MD Work Phone: Plastic Surgery Comment on above: S/P breast reconstru ction (Primary Dx); Breast pain Start: 06-29-2021 End: 06-29-2021 Patient encounter procedure Aline Cooney PA-C Work Phone: [facility] Comment on above: BRCA2 gene mutation positive in female (Primary Dx); Family history of breast cancer; S/P bilateral mastectomy Start: 04-13-2021 End: 04-13-2021 Gynecological examination normal Dina Brandon Other [facility] Other Start: 12-21-2020 History of abnormal cervical Papanicolaou smear Dina Brandon Other [facility] Other Start: 08-06-2019 Adult health examination Alessandra Brandon Other [facility] [employer] Other Start: 03-19-2017 End: 03-20-2017 Ambulatory BRI FARNSWORTH Facility:[facility] Start: 01-19-2017 Ambulatory Hammad Jacobs Facility:[facility] Start: 12-10-2016 End: 12-10-2016 Ambulatory BRI FARNSWORTH Facility:[facility] Start: 11-14-2016 End: 11-15-2016 Ambulatory BRI FARNSWORTH Facility:[facility] Procedures Date Procedure Procedure Detail Performing Clinician Start: 05-08-2023 Radiofrequency ablat ion of nerve root of lumbar spine using fluoroscopic guidance Vangie Rizvi Comment on above: Bilateral L4/5+ L5/S 1 80% relief Start: 03-13-2023 Injection of facet j oint using fluoroscopic guidance Vangie Belkys Comment on above: 95% relief x 2 days Start: 01-07-2023 Injection into facet joint of lumbar spine using fluoroscopic guidance Rufino Myers Comment on above: 100% relief x1 day Start: 11-16-2022 Computerized ophthal riana imaging retina Laura Dutton MD, PhD Work Phone: Start: 05-03-2022 End: 05-03-2022 Fluorescein angrph w/multiframe i&r uni/bi Sunday Fritz MD Work Phone: Start: 04-12-2021 End: 05-16-2021 Insertion of intrauterine contraceptive device Dina Brandon Other Start: 10-26-2020 Adult depression screening assessment Aline Cooney PA-C Work Phone: Start: 06-02-2020 History of bilateral mastectomy S/P bilateral mastectomy Aline Cooney PA-C Work Phone: Start: 12-28-2019 Mammography Aline mack PA-C Work Phone: Start: 01-04-2015 End: 04-03-2019 Screening mammography Dina Brandon Other End: 12-04-2018 screening Dina Brandon Other Counseling Dina Brandon Other End: 12-21-2020 Counseling Dina Brandon Other End: 10-25-2021 Depression screening Dina Brandon Other Excision of breast tissue Rufino Myers Comment on above: bilat in May with reconstruction at the same time; prophylactic due to Brca-2 gene History of bilateral mastectomy S/P bilateral mastectomy Aline Cooney PA-C Work Phone: End: 10-23-2021 Removal of intrauterine device Dina Brandon Other Tonsillectomy Tonsillectomy Rufino peacock Tonsillectomy and adenoidectomy Rufino Myers End: 12-21-2020 Viral screening Dina Brandon Other Plan of Treatment Date Care Activity Detail Author Start: 01-11-2026 HPV TESTING HPV TESTING [facility] Start: 01-11-2026 PAP TESTING PAP TESTING [facility] Start: 12-04-2023 End: 05-12-2024 OCT MACULA CIRRUS OU (BOTH EYES) OCT MACULA CIRRUS OU (BOTH EYES) OPHT Imaging Routine Retinal vasculitis, bilateral Expected: 12/04/2023, Expires: 05/12/2024 [facility] Work Phone: Comment on above: Expected: 12/04/2023 , Expires: 05/12/2024 Start: 05-19-2023 End: 10-26-2023 FLUORESCEIN ANGIOGRAPHY OU (BOTH EYES), TRANSIT OD (RIGHT EYE) FLUORESCEIN ANGIOGRAPHY OU (BOTH EYES), TRANSIT OD (RIGHT EYE) OPHT Imaging Routine Optic disc edema Expected: 05/19/2023, Expires: 10/26/2023 [facility] Work Phone: Comment on above: Expected: 05/19/2023 , Expires: 10/26/2023 Start: 05-19-2023 End: 10-26-2023 OCT MACULA CIRRUS OU (BOTH EYES) OCT MACULA CIRRUS OU (BOTH EYES) OPHT Imaging Routine Optic disc edema Expected: 05/19/2023, Expires: 10/26/2023 [facility] Work Phone: Comment on above: Expected: 05/19/2023 , Expires: 10/26/2023 Start: 11-02-2022 Influenza vaccination Influenza Vacc ine (#1) [facility] Start: 05-04-2022 End: 07-04-2022 25-hydroxyvitamin D3 [Mass/volume] in Serum or Plasma VITAMIN D 25 HYDROXY Lab Routine Other fatigue Expected: 05/04/2022, Expires: 07/04/2022 [facility] Work Phone: Comment on above: Expected: 05/04/2022 , Expires: 07/04/2022 Start: 05-04-2022 End: 07-04-2022 AVIS BY IFA WITH REFLEX AVIS BY IFA WITH REFLEX Lab Routine AVIS positive Expected: 05/04/2022, Expires: 07/04/2022 [facility] Work Phone: Comment on above: Expected: 05/04/2022 , Expires: 07/04/2022 Start: 05-04-2022 End: 07-04-2022 C reactive protein [Mass/volume] in Serum or Plasma C-REACTIVE PROTEIN (CRP) Lab Routine Pain in both hands Expected: 05/04/2022, Expires: 07/04/2022 [facility] Work Phone: Comment on above: Expected: 05/04/2022 , Expires: 07/04/2022 Start: 05-04-2022 End: 07-04-2022 Cobalamin (Vitamin B12) [Mass/volume] in Serum or Plasma VITAMIN B12 BLOOD Lab Routine Other fatigue Expected: 05/04/2022, Expires: 07/04/2022 [facility] Work Phone: Comment on above: Expected: 05/04/2022 , Expires: 07/04/2022 Start: 05-04-2022 End: 07-04-2022 DNA double strand Ab [Units/volume] in Serum by Immunoassay DNA AB DS + CONF BLD Lab Routine Joint stiffness Polyarthralgia Expected: 05/04/2022, Expires: 07/04/2022 [facility] Work Phone: Comment on above: Expected: 05/04/2022 , Expires: 07/04/2022 Start: 05-04-2022 End: 07-04-2022 Erythrocyte sedimentation rate SED RATE WESTERGREN Lab Routine Pain in both hands Expected: 05/04/2022, Expires: 07/04/2022 [facility] Work Phone: Comment on above: Expected: 05/04/2022 , Expires: 07/04/2022 Start: 05-04-2022 End: 07-04-2022 Thyrotropin [Units/volume] in Serum or Plasma TSH BLD Lab Routine Other fatigue Expected: 05/04/2022, Expires: 07/04/2022 [facility] Work Phone: Comment on above: Expected: 05/04/2022 , Expires: 07/04/2022 Start: 03-04-2022 DEPRESSION ASSESSMENT DEPRESSION ASS ESSMENT [facility] Start: 11-02-2021 Influenza vaccination [facility] Start: 10-26-2021 Adult depression screening assessment DEPRESSION SCREENING [facility] Start: 12-27-2020 Mammography [facility] Start: 1997 SHINGRIX VACCINE (1 of 2) SHINGRIX VACCINE (1 of 2) [facility] Start: 1997 Urine microalbumin profile [facility] Start: 1996 HIV SCREENING HIV SCREENING [facility] Start: 1990 COVID-19 VACCINE (1) COVID-19 VACCIN E (1) [facility] Start: 1984 PNEUMOCOCCAL (1 - PCV) PNEUMOCOCCAL (1 - PCV) [facility] Start: 1984 Pneumococcal vaccination Pneumococcal Vaccine (1 - PCV) [facility] Start: 01-01-1984 COVID-19 VACCINE (#1) COVID-19 VACCI NE (#1) [facility] Start: 07-02-1979 COVID-19 VACCINE (#1) COVID-19 VACCI NE (#1) [facility] Start: 1978 HEPATITIS B (1 of 3 - 3-dose series) HEPATITIS B (1 of 3 - 3-dose series) [facility] [facility]: 1980 Hepatitis B Vaccine (1 of 3 - 3-dose series) Hepatitis B Vaccine (1 of 3 - 3-dose series) [facility] End: 05-12-2024 FLUORESCEIN ANGIOGRAPHY OU (BOTH EYES), TRANSIT OD (RIGHT EYE) FLUORESCEIN ANGIOGRAPHY OU (BOTH EYES), TRANSIT OD (RIGHT EYE) OPHT Imaging Routine Retinal vasculitis, bilateral 1 Occurrences starting 11/19/2022 until 05/12/2024 [facility] Work Phone: Comment on above: 1 Occurrences starti ng 11/19/2022 until 05/12/2024 End: 06-03-2023 XR HAND GENERAL 3V PA/LAT/OBL BILATERAL XR HAND GENERAL 3V PA/LAT/OBL BILATERAL Radiology Routine Pain in both hands 1 Occurrences starting 05/04/2022 until 06/03/2023 [facility] Work Phone: Comment on above: 1 Occurrences starti ng 05/04/2022 until 06/03/2023 [facility] Payers Date Payer Category Payer Self-pay 2022 Medicaid [place] [employer] [employer] [id number] 2022-Present [phone] [address] [place] [id number] Medicaid [id number] 2017 Medicaid [place] [id number] 2017-Present [phone] [address] [place] [id number] Medicaid [id number] 2015 Medicaid [id number] 1978 Unknown [id number] 1978 Unknown [id number] 1978 Unknown [id number] 1978 Unknown [id number] 1978 Unknown [id number] [id number] 1978 Unknown [id number] .[id number] 1978 Unknown [id number] [id number] 1978 Unknown [id number] 1978 Unknown [id number] [id number] 1978 Unknown [id number] 1959 Unknown [id number] Unknown [id number] Social History Date Type Detail Facility Start: 05-06-2020 End: 01-22-2023 Tobacco smoking status NHIS Ex-smoker [facility] History of tobacco use Cigarette Smoker [facility] Start: 05-06-2020 End: 05-04-2022 Tobacco use and exposure Smokeless tobacco non-user [facility] Start: 06-29-2021 End: 11-16-2022 Alcohol intake Current drinker of alcohol (finding) [facility] Start: 02-11-2019 History SDOH Alcohol Comment occasional [facility] Start: 05-06-2020 End: 05-04-2022 Tobacco Comment social smoker in the past. [facility] Start: 1980 Sex Assigned At Not on file [facility] Start: 06-19-2021 End: 07-13-2021 Exposure to SARS-CoV-2 (event) Not sure [facility] History of tobacco use Current smoker [facility] Start: 10-26-2020 End: 11-16-2022 Sex Assigned At [facility] Tobacco smoking status No Smokin g Status Entered [facility] Start: 10-26-2020 End: 11-16-2022 History of Social function [facility] Adult Depression Screening Assessment 2 [facility] Start: 1980 Sex Assigned At Female F [facility] Medical Equipment Procedure Code Equipment Code Equipment Origin al Text Equipment Identifier Dates Matrix Alloderm Select Thk.4-2.4mm Thick Large Contour 21.5x10.7cm Tissue - [id number] Start: 05-10-2020 Matrix Alloderm Select Thk.4-2.4mm Thick Large Contour 21.5x10.7cm Tissue - [id number] Start: 05-10-2020 Matrix Alloderm Select Thk.4-2.4mm Thick Large Contour 21.5x10.7cm Tissue - [id number] Start: 05-10-2020 Matrix Alloderm Select Thk.4-2.4mm Thick Large Contour 21.5x10.7cm Tissue - [id number] Start: 05-10-2020 Implant Natrelle Inspira Full Profile Silicone Breast Smooth Shell Surface - [id number] Start: 05-10-2020 Implant Natrelle Inspira Full Profile Silicone Breast Smooth Shell Surface - [id number] Start: 05-10-2020 Functional Status Date Assessment Result Facility 07-26-2023 Functional Status N/A [facility] 05-08-2023 Functional Status N/A [facility] 03-25-2023 Functional Status N/A [facility] 01-22-2023 Functional Status N/A [facility] 11-13-2022 Functional Status N/A [facility] Clinical Notes 06-02-2020 to 07-26-2023 Note Date & Type Note Facility 07-26-2023 Evaluation + Plan note Extrac anaid from: Title:Pain Managment Follow up Author:Vangie Pineda Date:07/26/23 Impression and Plan Patient is a 42-year-old female with a past medical history seen for lumbar spondylosis and chronic lower back pain following up after undergoing bilateral L3-5 medial branch RFA. This was covering the L4-S1 facet joints. It was done on 05/08/2023 and at this time has given her 80% relief. She is feeling well. She is doing well. She is comfortable. She is happy. She feels that her pain is overall very well-controlled. At this time, she is going to follow-up in 6 months because she would rather stay on top of this. Does not want to end up and how much pain she was in before. She will call us in the interim should she require anything from our services. PATRICK score: 12%. [facility]03-06-2024 Evaluation + Plan noteExtracted from: Title:Bilateral L3-5 lumbar radiofrequency ablation Author:Bebo Bustos DO Date:05/08/23 Diagnosis: M47.816, bilatera l lumbar spondyloarthropathy Procedure: Bilateral L3 and L4 medial branch and L5 posterior ramus radiofrequency ablation to target the facet joints of L4/5 and L5/S1 Anesthesia: Local Complications: None After informed consent was obtained, the patient was brought to the procedure room and placed in the prone position. The back area is prepped and draped in usual sterile fashion. The patient was placed on monitors via the anesthesia team. Using fluoroscopic guidance skin and subcutaneous tissue overlying needle trajectories to the target sites were anesthetized with 2% lidocaine. 20-gauge radiofrequency needles were advanced under fluoroscopic guidance to the appropriate anatomic landmarks. Needle tip position was confirmed on both sides in both the AP and lateral views. Next, all levels on the right were stimulated at 2Hz for motor stimulation at 2.0V with no lower extremity motor contractions. Next 1.0mL of 2.0% lidocaine was injected through each needle tip. Thereafter, radiofrequency lesioning was carried out at 80 degrees for 80 seconds twice. Next, all levels on the left were stimulated at 2Hz for motor stimulation at 2.0V with no lower extremity motor contractions. Next 1.0mL of 2.0% lidocaine was injected through each needle tip. Thereafter, radiofrequency lesioning was carried out at 80 degrees for 80 seconds twice. The needles were removed. The patient was then transferred to the recovery room in stable condition. Postprocedure lower extremity strength 5/5 bilaterally in hip flexors, quads, hamstrings, plantarflexion/dorsiflexion/FHL/EHL. Follow-up: Discharge instructions provided. The patient agrees to continue currently prescribed/recommended therapies. Future Appointments Appointment Date:05/31/2023 03:15:00 PM Scheduled Provider:Vangie Rizvi PA-C Location:[facility] Appointment Type:Pain Management - Follow Up (FT) [facility]03-06-2024 Note [id number] R [facility] 05-08-2023 NoteDiagnosis: M47.816, bilateral lumbar spondyloarthropathy Procedure: Bilateral L3 and L4 medial branch and L5 posterior ramus radiofrequency ablation to target the facet joints of L4/5 and L5/S1 Anesthesia: Local Complications: None After informed consent was obtained, the patient was brought to the procedure room and placed in the prone position. The back area is prepped and draped in usual sterile fashion. The patient was placed on monitors via the anesthesia team. Using fluoroscopic guidance skin and subcutaneous tissue overlying needle trajectories to the target sites were anesthetized with 2% lidocaine. 20-gauge radiofrequency needles were advanced under fluoroscopic guidance to the appropriate anatomic landmarks. Needle tip position was confirmed on both sides in both the AP and lateral views. Next, all levels on the right were stimulated at 2Hz for motor stimulation at 2.0V with no lower extremity motor contractions. Next 1.0mL of 2.0% lidocaine was injected through each needle tip. Thereafter, radiofrequency lesioning was carried out at 80 degrees for 80 seconds twice. Next, all levels on the left were stimulated at 2Hz for motor stimulation at 2.0V with no lower extremity motor contractions. Next 1.0mL of 2.0% lidocaine was injected through each needle tip. Thereafter, radiofrequency lesioning was carried out at 80 degrees for 80 seconds twice. The needles were removed. The patient was then transferred to the recovery room in stable condition. Postprocedure lower extremity strength 5/5 bilaterally in hip flexors, quads, hamstrings, plantarflexion/dorsiflexion/FHL/EHL. Follow-up: Discharge instructions provided. The patient agrees to continue currently prescribed/recommended therapies.[facility] CenterComment on above: Result Comment: Electronically Signed By: Bebo Bustos DO.jose\Date and Time Signed: 05/08/23 10:03 [id number] Evaluation + Plan noteExtracted from: Title:Pain Managment Follow up Author:Vangie Pineda Date:03/25/23 Impression and Plan Patient is a 42-year-old female with a past medical history significant for lumbar spondylosis and chronic lower back pain. Patient underwent second bilateral L4-5 and L5-S1 facet medial branch block done on 03/13/2023. The most recent 1 gave 95% relief for 2 days. Both medial branch blocks have been the thing to give her the most significantly. Based on her pain pattern, her imaging findings, and the significant response she got from both medial branch blocks I discussed with patient bilateral L4-5 and L5-S1 facet RFA. Procedure was discussed. Risk and benefits were discussed. Patient is agreeable. She will follow-up 3 weeks after the RFA for reevaluation. Call clinic sooner if necessary. OARRS reviewed PATRICK score: 32% [facility]01-10-2024 Note [id number]#[id number]. [facility] 03-[facility]-2023 NoteDiagnosis: m47.816, lumbar spondyloarthropathy Procedure: Bilateral diagnostic lumbar medial branch blocks under fluoroscopic guidance, targeting the L3 and L4 medial branches and posterior ramus of L5 that cover the L4/5 and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
[2023-10-22 18:11] LABS: Age Gdln ACOG Testing Note (.); HPV Aptima Negative (Negative); IGP, Aptima HPV, rfx 16/18,45 Note (.)
== END 2023-10-16 20:25 | disposition home or self-care (01) ==
LOC: LAB 20:24
PROVIDERS: PCP Family Medicine; Visit Provider Obstetrics & Gynecology
DX: Z01.419 Encounter for gynecological examination (general) (routine) without abnormal findings (principal)
CPT/HCPCS: 87624; 88175